=== PATIENT | female | born 1955 | race American Indian/Alaskan Native ===

== ENCOUNTER 2021-11-19 20:05 | Inpatient (IN) | payer MEDICARE ==
[2021-11-19] MEDS ORDERED: VANCOMYCIN 1,250 MG in SODIUM CHLORIDE 0.9% 500 ML 500 ML IV ONE (21:21)
--- NOTE | 2021-11-19 21:39 | Emergency Department Report ---
ED General Adult HPI - General Chief complaint: Hypoglycemia Stated complaint: LOW BLOOD SUGAR Time Seen by Provider: 11/19/21 20:37 Source: EMS Mode of arrival: Stretcher Limitations: No Limitations - History of Present Illness Initial comments: Patient has a history of diabetes, left below the knee amputation who presents emergency department with complaints of low blood sugar. Patient states that she did not eat today and did take her insulin. Patient's blood sugar was in the 20s and then the 30s. Patient's blood sugar here is 94 and she states that she does not take any oral hyper antihyperglycemic agents. Patient states that she took 30 units of the 70/30 insulin at approximately noon. Severity scale (0 -10): 0 - Related Data Home Medications Medication Instructions Recorded Confirmed Last Taken Lenalidomide [Revlimid] 10 mg PO QDAY 11/21/21 11/21/21 Unknown Tamoxifen Citrate 20 mg PO DAILY 11/21/21 11/21/21 Unknown Valacyclovir HCl [Valacyclovir] 500 mg BID 11/21/21 11/21/21 Unknown amLODIPine [Norvasc] 5 mg PO DAILY 11/21/21 11/21/21 Unknown carvediloL [Coreg] 6.25 mg PO BID 11/21/21 11/21/21 Unknown hydrALAZINE [Apresoline TAB] 10 mg PO BID 11/21/21 11/21/21 Unknown Allergies Allergy/AdvReac Type Severity Reaction Status Date / Time sulfamethoxazole Allergy Severe Unknown Verified 11/20/21 16:16 [From Bactrim] trimethoprim [From Bactrim] Allergy Severe Unknown Verified 11/20/21 16:16 cephalexin [From Keflex] Allergy Intermediate Rash Verified 11/20/21 16:20 penicillin G Allergy Intermediate Rash Verified 11/20/21 16:20 SHIN Inhibitors AdvReac Swelling Verified 11/25/21 13:46 ED Review of Systems ROS: Stated complaint: LOW BLOOD SUGAR Other details as noted in HPI Constitutional: denies: chills, fever Eyes: denies: eye pain, eye discharge, vision change ENT: denies: ear pain, throat pain Respiratory: denies: cough, shortness of breath, wheezing Cardiovascular: denies: chest pain, palpitations Endocrine: no symptoms reported Gastrointestinal: denies: abdominal pain, nausea, diarrhea Genitourinary: denies: urgency, dysuria, discharge Musculoskeletal: denies: back pain, joint swelling, arthralgia Skin: denies: rash, lesions Neurological: denies: headache, weakness, paresthesias Psychiatric: denies: anxiety, depression Hematological/Lymphatic: denies: easy bleeding, easy bruising ED Past Medical Hx - Past Medical History Previous Medical History?: Yes Hx Hypertension: Yes Hx Diabetes: Yes (IDDM) Additional medical history: breast cancer, multiple myeloma - Surgical History Past Surgical History?: No - Social History Smoking Status: Unknown if ever smoked - Medications Home Medications: Home Medications Medication Instructions Recorded Confirmed Last Taken Type Lenalidomide [Revlimid] 10 mg PO QDAY 11/21/21 11/21/21 Unknown History Tamoxifen Citrate 20 mg PO DAILY 11/21/21 11/21/21 Unknown History Valacyclovir HCl [Valacyclovir] 500 mg BID 11/21/21 11/21/21 Unknown History amLODIPine [Norvasc] 5 mg PO DAILY 11/21/21 11/21/21 Unknown History carvediloL [Coreg] 6.25 mg PO BID 11/21/21 11/21/21 Unknown History hydrALAZINE [Apresoline TAB] 10 mg PO BID 11/21/21 11/21/21 Unknown History ED Physical Exam - General Limitations: No Limitations General appearance: alert, in no apparent distress - Head Head exam: Present: atraumatic, normocephalic - Eye Eye exam: Present: normal appearance - ENT ENT exam: Present: mucous membranes moist - Neck Neck exam: Present: normal inspection - Respiratory Respiratory exam: Present: normal lung sounds bilaterally. Absent: respiratory distress - Cardiovascular Cardiovascular Exam: Present: regular rate, normal rhythm. Absent: systolic murmur, diastolic murmur, rubs, gallop - GI/Abdominal GI/Abdominal exam: Present: soft, normal bowel sounds - Extremities Exam Extremities exam: Present: normal inspection, other (There is a left below the knee amputation. The right lower extremity has a foot with a 2+ DP pulse. The great toe is black is macerated it is foul-smelling it appears gangrenous) - Back Exam Back exam: Present: normal inspection - Neurological Exam Neurological exam: Present: alert, oriented X3 - Psychiatric Psychiatric exam: Present: normal affect, normal mood - Skin Skin exam: Present: warm, dry, intact, normal color. Absent: rash ED Course Vital Signs 11/19/21 11/20/21 11/20/21 20:26 00:00 01:09 Temperature 97.3 F L Pulse Rate 75 80 Pulse Rate [ 67 Anterior Bilateral Throughout] Respiratory 18 19 Rate Respiratory 22 Rate [Anterior Bilateral Throughout] Blood Pressure 145/98 Blood Pressure 146/49 [Left] O2 Sat by Pulse 100 100 Oximetry 11/20/21 11/20/21 11/20/21 02:10 03:44 05:34 Temperature 98.4 F Pulse Rate 65 75 67 Pulse Rate [ Anterior Bilateral Throughout] Respiratory 17 17 11 L Rate Respiratory Rate [Anterior Bilateral Throughout] Blood Pressure Blood Pressure 139/65 164/73 162/67 [Left] O2 Sat by Pulse 98 95 100 Oximetry - Consultations Consultation #1: 11/19/21 23:[address] Morgan who is on-call for nephrology. He agrees with plan for calcium gluconate, Kayexalate, albuterol. Will see patient. ED Medical Decision Making - Lab Data Result diagrams: 11/24/21 05:23 11/24/21 05:23 - Radiology Data Radiology results: report reviewed, image reviewed - Medical Decision Making Patient is a 66-year-old female presenting to the emergency department with complaints of low blood sugar however she is incidentally noted to have a gangrenous right great toe. Given this I have ordered the sepsis bundle and will give patient IV fluids, broad-spectrum antibiotics and will obtain chest x- ray, x-ray of the foot urinalysis. Lactic acid and blood cultures were also collected and patient likely to be admitted for work-up including possible amputation of the right great toe. Critical care attestation.: If time is entered above; I have spent that time in minutes in the direct care of this critically ill patient, excluding procedure time. ED Disposition Clinical Impression: Osteomyelitis of great toe of right foot, Gangrene of toe of right foot, Diabetes mellitus with foot ulcer and gangrene, Hyperkalemia, Sepsis, Hypoglycemia Disposition: ADMITTED INPATIENT Is pt being admited?: Yes Condition: Fair
[2021-11-19] MEDS ORDERED: VANCOMYCIN PHARMACY TO DOSE IV SCH (22:00)
[2021-11-19 22:01] LABS: Hemoglobin 10.1 gm/dl (10.1-14.3); Mean Corpuscular HGB Conc 34 % (30-34); Mean Corpuscular Volume 106 fl (79-97); Platelet Count 186 K/mm3 (140-440); Red Blood Count 2.84 M/mm3 (3.65-5.03); Red Cell Distribution Width 15.4 % (13.2-15.2)
--- NOTE | 2021-11-19 22:06 | XRay Report ---
RIGHT FOOT 3 VIEW(S) INDICATION / CLINICAL INFORMATION: osteo vs gangrene great toe COMPARISON: None available. FINDINGS: BONES / JOINT(S): There is cortical irregularity to the distal aspect of the distal phalanx of the fi rst digit. There is overlying subcutaneous emphysema. These findings are concerning for osteomyelitis . There is moderate to severe DJD of the first MTP. Patient is status post amputation of the mid fift h metatarsal and fifth ray. SOFT TISSUES: Calcific atherosclerosis. ADDITIONAL FINDINGS: None. Signer Name: Dontae Garcia DO Signed: 11/19/2021 10:02 PM Workstation Name: [id number]
--- NOTE | 2021-11-19 22:07 | XRay Report ---
CHEST 1 VIEW 11/19/2021 9:32 PM INDICATION / CLINICAL INFORMATION: concern for sepsis. COMPARISON: None available. FINDINGS: SUPPORT DEVICES: None. HEART / MEDIASTINUM: No significant abnormality. LUNGS / PLEURA: No significant pulmonary or pleural abnormality. No pneumothorax. ADDITIONAL FINDINGS: No significant additional findings. IMPRESSION: 1. No acute findings. Signer Name: Dontae Garcia DO Signed: 11/19/2021 10:02 PM Workstation Name: [id number]
[2021-11-19] MEDS ORDERED: AZTREONAM/NS 1 GM/50 ML 1 GM/50 ML VIAL IV ONE (22:21)
[2021-11-19 22:24] LABS: Albumin 3.4 g/dL (3.9-5); Calcium 10.4 mg/dL (8.4-10.2)
[2021-11-19] MEDS ORDERED: SODIUM CHLORIDE 0.9% 1000 ML IV SOLN IV ONE (22:36)
[2021-11-19] MEDS ORDERED: SODIUM POLYSTYRENE 15 GM/60 ML ORAL LIQD PO ONE (22:45)
[2021-11-19] MEDS ORDERED: ALBUTEROL 2.5 MG/3 ML NEBU IH ONE (22:45)
[2021-11-19] MEDS ORDERED: MORPHINE 4 MG/1 ML INJ IV ONE (22:45)
[2021-11-19] MEDS ORDERED: VANCOMYCIN 1,250 MG in SODIUM CHLORIDE 0.9% 250ML 250 ML IV ONE (23:05)
[2021-11-19 23:09] LABS: Band Neutrophils # (Manual) 0.1 K/mm3; Basophils % (Manual) 0 % (0.0-1.8); Total Cells Counted 100
[2021-11-19 23:10] LABS: Anisocytosis 1+; Platelet Estimate Consistent w Auto
--- NOTE | 2021-11-19 23:10 | History and Physical Report ---
History of Present Illness Date of examination: 11/19/21 Date of admission: 11/19/2021 Chief complaint: Low Blood Glucose History of present illness: 66-year-old female with known history of diabetes mellitus and left below-knee amputation presenting to the emergency room today for major complaints of low blood glucose. Patient states that she generally eats today but used her insulin. Initial blood glucose was in the 20s to 30s on the field. Patient denies any chest pain or shortness of breath, no nausea vomiting and no abdominal pain. Work-up in the emergency room today lab reveals hyperkalemia of 5.6, lactic acid initially was 4.4. Chest x-ray reveals no acute abnormality. Patient had a gangrenous looking toe on the right foot which was x-rayed reveal ing overlying subcutaneous emphysema with findings concerning for osteomyelitis. Patient has been started on empiric IV antibiotics. Past History Past Medical History: diabetes, hypertension, other (breast cancer, multiple myeloma) Past Surgical History: Other (Left BKA) Social history: no significant social history Family history: no significant family history Medications and Allergies Allergies Allergy/AdvReac Type Severity Reaction Status Date / Time No Known Allergies Allergy Unverified 11/19/21 20:30 Active Meds: Active Medications Aztreonam (Azactam/Ns 1 Gm/50 Ml) 1 gm in 50 mls @ 50 mls/hr IV ONCE ONE; Protocol Stop: 11/19/21 23:20 Vancomycin HCl 1,250 mg/ (Sodium Chloride) 275 mls @ 166.667 mls/hr IV ONCE ONE Stop: 11/20/21 00:43 Calcium Gluconate 2,000 mg/ (Sodium Chloride) 120 mls @ 660 mls/hr IV ONCE ONE Stop: 11/20/21 00:25 Review of Systems Constitutional: no fever, no chills Ears, nose, mouth and throat: no nasal congestion, no sore throat Cardiovascular: no chest pain, no palpitations Respiratory: no cough, no shortness of breath Gastrointestinal: no abdominal pain, no nausea, no vomiting, no diarrhea Genitourinary Female: no pelvic pain, no flank pain, no dysuria, no hematuria Musculoskeletal: no neck pain, no low back pain Integumentary: no rash, no pruritis Neurological: no headaches, no confusion Psychiatric: no anxiety, no depression Endocrine: no polyphagia, no polydipsia, no polyuria, no nocturia Exam - Constitutional Vitals: Temp Pulse Resp BP Pulse Ox 97.3 F L 75 18 145/98 100 11/19/21 20:26 11/19/21 20:26 11/19/21 20:26 11/19/21 20:26 11/19/21 20:26 General appearance: Present: no acute distress, well-nourished - EENT Eyes: Present: PERRL, EOM intact. Absent: scleral icterus ENT: clear oral mucosa, dentition normal - Neck Neck: Present: supple, normal ROM - Respiratory Respiratory effort: normal Respiratory: bilateral: CTA - Cardiovascular Rhythm: regular Heart Sounds: Present: S1 & S2. Absent: gallop, systolic murmur, diastolic murmur, rub, click - Extremities Extremities: No edema, normal temperature, normal color, Full ROM, abnormal (Denies any left below-knee amputation.) Extremity abnormal: ulceration (Right great toe appears gangrenous., Skin appears macerated and black), other (Falls on right lower extremity to rule out. ) - Abdominal General gastrointestinal: Present: soft, non-tender, non-distended, normal bowel sounds. Absent: mass - Integumentary Integumentary: Present: clear, warm, dry, normal turgor. Absent: rash - Musculoskeletal Musculoskeletal: strength equal bilaterally - Psychiatric Psychiatric: appropriate mood/affect, intact judgment & insight, memory intact, cooperative - Neurologic Neurologic: CNII-XII intact, no focal deficits, moves all extremities Results - Labs CBC & Chem 7: 11/19/21 21:44 11/19/21 21:44 Labs: Abnormal lab results 11/19/21 11/19/21 11/19/21 Range/Units 21:44 21:44 21:44 WBC 2.5 L (4.5-11.0) K/mm3 RBC 2.84 L (3.65-5.03) M/mm3 Hct 30.0 L (30.3-42.9) % MCV 106 H (79-97) fl MCH 36 H (28-32) pg RDW 15.4 H (13.2-15.2) % Potassium 5.6 H (3.6-5.0) mmol/L BUN 25 H (7-17) mg/dL Creatinine 1.8 H (0.6-1.2) mg/dL Lactic Acid 4.40 H* (0.7-2.0) mmol/L Calcium 10.4 H (8.4-10.2) mg/dL Albumin 3.4 L (3.9-5) g/dL Assessment and Plan Assessment: 1. Hypoglycemia. 2. Right great to gangrene versus osteomyelitis. 3. Hyperkalemia 4. Sepsis 5. DORCAS Plan: 1. Patient placed on empiric IV antibiotics. 2. We will also monitor Accu-Cheks closely. 3. We will treat patient's hyperkalemia. 4. We will consult infectious disease and podiatry for further evaluation and recommendations. 5. We will resume routine home medications once reconciled 6. Consult placed to nephrology for evaluation and recommendation. DVT prophylaxis: Patient placed on subcutaneous heparin CODE STATUS: Full code
[2021-11-20] MEDS ORDERED: CALCIUM GLUCONATE 2,000 MG in SODIUM CHLORIDE 0.9% 100 ML IV ONE (00:15)
[2021-11-20 00:42] LABS: Bacteria,Urine 3+ /HPF (Negative); Mucus,Urine FEW /HPF
[2021-11-20] MEDS ORDERED: DEXTROSE 50% IN WATER (25GM) 50 ML SYRINGE IV PRN (00:45)
[2021-11-20] MEDS ORDERED: ONDANSETRON 4 MG/2 ML INJ IV PRN (00:45)
[2021-11-20] MEDS ORDERED: MAGNESIUM HYDROXIDE (MOM) ORAL LIQD UDC PO PRN (00:45)
[2021-11-20 00:47] LABS: Bilirubin,Urine Negative (Negative); Color,Urine Yellow (Yellow)
[2021-11-20 00:48] LABS: Blood,Urine Negative (Negative)
[2021-11-20] MEDS ORDERED: AZTREONAM/NS 1 GM/50 ML 1 GM/50 ML VIAL IV SCH (06:00)
[2021-11-20] MEDS: MORPHINE 2 MG/1 ML INJ IV PRN ×2 (09:45→22:19)
--- NOTE | 2021-11-20 11:32 | Event Note ---
Date: 11/20/21 ID consulted for toe gangrene. Tried to see the patient twice but has been off the floor. Patient reportedly admitted due to hypoglycemia, incidentally found to have gangrenous appearing toe. No sepsis. Recommendations: -Empiric ceftriaxone, vancomycin, orders placed -Vascular surgery evaluation recommended Analia Salcedo MD, FACP, NED [facility] O: [phone] F: [phone] C: [phone]
[2021-11-20] MEDS: SODIUM CHLORIDE 0.9% 1000 ML 1,000 ML IV SCH ×2 (13:42→22:27)
[2021-11-20] MEDS: HEPARIN 5,000 UNIT/1 ML VIAL SUB-Q SCH ×2 (13:45→22:25)
[2021-11-20] MEDS: cefTRIAXone/NS 1 GM/50 ML 1 GM/50 ML BAG IV SCH (13:45)
--- NOTE | 2021-11-20 17:06 | Magnetic Resonance Report ---
MRI RIGHT FOOT WITHOUT CONTRAST INDICATION / CLINICAL INFORMATION: OSTEOMYELITIS RT. GREAT TOE Patient motion, best possible exam.. TECHNIQUE: Multiplanar, multisequence MR images were obtained. COMPARISON: None available. FINDINGS: BONES: Bony destruction with abnormal hypointense T1 and hyperintense T2 signal first toe proximal an d distal phalanx with ulcer along the distal phalanx with the cutaneous soft tissue gas. Previous amp utation of fifth toe mid metatarsal shaft. No fracture. No osseous lesion. JOINTS: Advanced degenerative arthrosis first MTP joint. No significant joint effusion or synovitis. SUBCUTANEOUS SOFT TISSUES: Subcutaneous edema characteristic for cellulitis MUSCLES: No significant abnormality. FLEXOR TENDONS: No significant abnormality. EXTENSOR TENDONS: No significant abnormality. LIGAMENTS: No significant abnormality. ADDITIONAL FINDINGS: None. IMPRESSION: 1. Acute osteomyelitis involving first toe proximal and distal phalanges with associated ulcer and rick bcutaneous gas and cellulitis Signer Name: Adalid Hadley MD Signed: 11/20/2021 5:02 PM Workstation Name: [id number]
[2021-11-20] MEDS: INSULIN LISPRO 100 UNIT/ML SUB-Q SCH ×2 (17:54→22:33)
[2021-11-20] MEDS: ACETAMINOPHEN 325 MG TAB PO PRN (18:47)
--- NOTE | 2021-11-20 19:08 | Consultation ---
History of Present Illness - Reason for Consult Consult date: 11/20/21 acute renal failure, chronic renal failure, hyperkalemia - History of Present Illness This is a 66-year-old -[place] woman with history of diabetes, CKD and left BKA who presented with concerns for hypoglycemia. Hypoglycemia was confirmed in the ER and she was subsequently admitted for further workup. Nephrology was consulted for acute kidney injury. Patient states that she has underlying CKD but is unaware of her baseline creatinine and staging. She states that she follows a Dr. Nichols. She denies any recent diarrhea, hematuria, dysuria and NSAID use. Past History Past Medical History: diabetes, hypertension, other (breast cancer, multiple myeloma) Past Surgical History: Other (Left BKA) Social history: no significant social history Family history: no significant family history Medications and Allergies Allergies Allergy/AdvReac Type Severity Reaction Status Date / Time sulfamethoxazole Allergy Severe Unknown Verified 11/20/21 16:16 [From Bactrim] trimethoprim [From Bactrim] Allergy Severe Unknown Verified 11/20/21 16:16 cephalexin [From Keflex] Allergy Intermediate Rash Verified 11/20/21 16:20 penicillin G Allergy Intermediate Rash Verified 11/20/21 16:20 Active Meds: Active Medications Acetaminophen (Acetaminophen 325 Mg Tab) 650 mg PO Q4H PRN PRN Reason: Pain MILD(1-3)/Fever >100.5/BOLAND Last Admin: 11/20/21 18:47 Dose: 650 mg Dextrose (Dextrose 50% In Water (25gm) 50 Ml Syringe) 0 ml IV Q30MIN PRN; Protocol PRN Reason: Hypoglycemia Heparin Sodium (Porcine) (Heparin 5,000 Unit/1 Ml Vial) 5,000 unit SUB-Q Q8HR [facility]IMI Last Admin: 11/20/21 13:45 Dose: 5,000 unit Sodium Chloride (Nacl 0.9% 1000 Ml) 1,000 mls @ 125 mls/hr IV DIRECT MIMI Last Admin: 11/20/21 13:42 Dose: 125 mls/hr Vancomycin HCl (Vancomycin/Ns 1 Gm/250 Ml) 1 gm in 250 mls @ 250 mls/hr IV Q24H [facility] Ceftriaxone Sodium (Rocephin/Ns 1 Gm/50 Ml) 1 gm in 50 mls @ 100 mls/hr IV Q24HR [facility]I; Protocol Last Admin: 11/20/21 13:45 Dose: 100 mls/hr Insulin Human Lispro (Insulin Lispro 100 Unit/Ml) 0 unit SUB-Q ACHS [facility]; Protocol Last Admin: 11/20/21 17:54 Dose: Not Given Magnesium Hydroxide (Magnesium Hydroxide (Mom) Oral Liqd Udc) 30 ml PO Q4H PRN PRN Reason: Constipation Morphine Sulfate (Morphine 2 Mg/1 Ml Inj) 2 mg IV Q4H PRN PRN Reason: Pain, Moderate (4-6) Last Admin: 11/20/21 09:45 Dose: 2 mg Morphine Sulfate (Morphine 4 Mg/1 Ml Inj) 4 mg IV Q4H PRN PRN Reason: Pain , Severe (7-10) Ondansetron HCl (Ondansetron 4 Mg/2 Ml Inj) 4 mg IV Q8H PRN PRN Reason: Nausea And Vomiting Sodium Chloride (Sodium Chloride 0.9% 10 Ml Flush Syringe) 10 ml IV BID [facility] Last Admin: 11/20/21 13:46 Dose: 10 ml Sodium Chloride (Sodium Chloride 0.9% 10 Ml Flush Syringe) 10 ml IV PRN PRN PRN Reason: LINE FLUSH Review of Systems All systems: negative Constitutional: malaise, lethargy Exam - Vital Signs Vital signs: Vital Signs Temp Pulse Resp BP Pulse Ox 97.3 F L 75 18 145/98 100 11/19/21 20:26 11/19/21 20:26 11/19/21 20:26 11/19/21 20:26 11/19/21 20:26 - Physical Exam Narrative exam: General: No acute distress HEENT: Oral mucosa moist Neck: Supple, no JVD Chest: Clear to auscultation bilaterally Heart: RRR, S1 and S2, no pericardial rub Abdomen: Soft, nontender, no renal bruit Extremity: No peripheral cyanosis, left BKA Neurological: Alert, awake, no asterixis Dermatology: No skin rash Psych: No agitation Musculoskeletal: No joint effusion Results - Lab Results 11/19/21 21:44 11/19/21 21:44 Most recent lab results Calcium 10.4 mg/dL (8.4-10.2) H 11/19/21 21:44 Assessment and Plan Acute kidney injury versus CKD Hyperkalemia Lactic acidosis Diabetes Mellitus Hypercalcemia Follow-up renal ultrasound Urinalysis reviewed, check UPCR Check ionized calcium, vit D and PTH Discussed low potassium diet Renally dose medications Avoid nephrotoxins Renal diet
[2021-11-21 00:15] LABS: Calcium 8.1 mg/dL (8.4-10.2)
[2021-11-21] MEDS: VANCOMYCIN/NS 1 GM/250 ML 1 GM/250 ML BAG IV SCH (00:29)
[2021-11-21] MEDS: HEPARIN 5,000 UNIT/1 ML VIAL SUB-Q SCH ×4 (03:13→21:30)
[2021-11-21] MEDS: MORPHINE 4 MG/1 ML INJ IV PRN ×2 (04:48→12:33)
[2021-11-21 06:04] LABS: Hematocrit 23.6 % (30.3-42.9); Mean Corpuscular HGB Conc 34 % (30-34); Mean Corpuscular Volume 104 fl (79-97); Platelet Count 135 K/mm3 (140-440); Red Blood Count 2.28 M/mm3 (3.65-5.03); Red Cell Distribution Width 15.3 % (13.2-15.2)
[2021-11-21 06:23] LABS: Calcium 7.9 mg/dL (8.4-10.2)
[2021-11-21] MEDS: SODIUM CHLORIDE 0.9% 1000 ML 1,000 ML IV SCH (06:51)
[2021-11-21] MEDS: INSULIN LISPRO 100 UNIT/ML SUB-Q SCH ×4 (08:36→21:35)
[2021-11-21 08:54] LABS: Total Cells Counted 100
[2021-11-21 08:55] LABS: Basophils % (Manual) 0 % (0.0-1.8)
[2021-11-21 08:56] LABS: Anisocytosis 1+; Platelet Estimate Consistent w Auto
--- NOTE | 2021-11-21 11:12 | Progress Note ---
Assessment and Plan 66-year-old female with known history of diabetes mellitus and left below-knee amputation presenting to the emergency room today for major complaints of low blood glucose 20s to 30s on the field. Work-up in the emergency room: lab reveals hyperkalemia of 5.6, lactic acid initially was 4.4. Chest x-ray reveals no acute abnormality. Patient had a gangrenous looking toe on the right foot which was x-rayed revealing overlying subcutaneous emphysema with findings concerning for osteomyelitis. Patient has been started on empiric IV antibiotics. Assessment: -- Hypoglycemia -- Right great to gangrene with osteomyelitis. -- Hyperkalemia, resolved -- Sepsis due to osteo -- DORCAS, likely vasomotor nephropathy -- s/p left AKA -- DM type 2 Plan: -- Patient placed on empiric IV antibiotics. -- We will also monitor Accu-Cheks closely. -- Monitor BMP, SSI -- consulted vascular and ID --resumed routine home medications once reconciled -- Consult placed to nephrology for evaluation and recommendation. -- DVT prophylaxis: Patient placed on subcutaneous heparin 11/20: cont empiric abx, ID consulted, follow cx, consult vascular, follow BMP Subjective Date of service: 11/20/21 Interval history: Patient seen and examined. Medical records and medication list reviewed. No acute event overnight noted by the RN. Patient denies any chest pain or difficulty breathing. Discussed plan of care at bedside with patient. Objective - Exam Narrative Exam: GENERAL: well-developed and well-nourished AAF lying on bed appeared to be in no discomfort. HEENT: Normocephalic. Atraumatic. No conjunctival congestion or icterus. Patient has moist mucous membranes. NECK: Supple. Trachea midline. CHEST/LUNGS: Clear to auscultated bilaterally, breathing nonlabored. No wheezes crackles or rhonchi. HEART/CARDIOVASCULAR: Regular in rate and rhythm. S1 and S2 positive. ABDOMEN: Abdomen is soft, nontender. Patient has normal bowel sounds. SKIN: There is no rash. Warm and dry. NEURO: No focal motor deficit. Follows command. MUSCULOSKELETAL: No joint effusion or tenderness. Extremities: ( left below-knee amputation.) ulceration (Right great toe appears gangrenous., Skin appears macerated and black), PSYCH: Cooperative. - Constitutional Vitals: Vital Signs - 12hr 11/21/21 04:49 Temperature 99.4 F Pulse Rate 75 Respiratory 17 Rate Blood Pressure 186/83 [Left] O2 Sat by Pulse 98 Oximetry - Labs CBC & Chem 7: 11/23/21 00:24 11/23/21 04:27 Labs: Abnormal lab results 11/20/21 11/20/21 11/20/21 Range/Units 13:39 15:57 20:58 WBC (4.5-11.0) K/mm3 RBC (3.65-5.03) M/mm3 Hgb (10.1-14.3) gm/dl Hct (30.3-42.9) % MCV (79-97) fl MCH (28-32) pg RDW (13.2-15.2) % Plt Count (140-440) K/mm3 Seg Neuts % (Manual) (40.0-70.0) % Seg Neutrophils # Man (1.8-7.7) K/mm3 Lymphocytes # (Manual) (1.2-5.4) K/mm3 Sodium (137-145) mmol/L Glucose (65-100) mg/dL POC Glucose 145 H 253 H 238 H (70-105) mg/dL Calcium (8.4-10.2) mg/dL 11/20/21 11/21/21 11/21/21 Range/Units 23:18 05:09 05:09 WBC 2.0 L (4.5-11.0) K/mm3 RBC 2.28 L (3.65-5.03) M/mm3 Hgb 8.0 L (10.1-14.3) gm/dl Hct 23.6 L D (30.3-42.9) % MCV 104 H (79-97) fl MCH 35 H (28-32) pg RDW 15.3 H (13.2-15.2) % Plt Count 135 L (140-440) K/mm3 Seg Neuts % (Manual) 77.0 H (40.0-70.0) % Seg Neutrophils # Man 1.5 L (1.8-7.7) K/mm3 Lymphocytes # (Manual) 0.3 L (1.2-5.4) K/mm3 Sodium 135 L (137-145) mmol/L Glucose 215 H 155 H (65-100) mg/dL POC Glucose (70-105) mg/dL Calcium 8.1 L D 7.9 L (8.4-10.2) mg/dL 11/21/21 11/21/21 Range/Units 07:23 11:07 WBC (4.5-11.0) K/mm3 RBC (3.65-5.03) M/mm3 Hgb (10.1-14.3) gm/dl Hct (30.3-42.9) % MCV (79-97) fl MCH (28-32) pg RDW (13.2-15.2) % Plt Count (140-440) K/mm3 Seg Neuts % (Manual) (40.0-70.0) % Seg Neutrophils # Man (1.8-7.7) K/mm3 Lymphocytes # (Manual) (1.2-5.4) K/mm3 Sodium (137-145) mmol/L Glucose (65-100) mg/dL POC Glucose 148 H 253 H (70-105) mg/dL Calcium (8.4-10.2) mg/dL
[2021-11-21] MEDS: cefTRIAXone/NS 1 GM/50 ML 1 GM/50 ML BAG IV SCH (12:33)
--- NOTE | 2021-11-21 12:36 | Consultation ---
History of Present Illness - Reason for Consult Consult date: 11/21/21 right 1st toe gangrene Requesting physician: LEESA AGUILAR - History of Present Illness 66-year-old female with known history of diabetes mellitus and left below-knee amputation presenting to the emergency room today for major complaints of low blood glucose. Patient states that she generally eats today but used her insulin. Initial blood glucose was in the 20s to 30s on the field. Patient denies any chest pain or shortness of breath, no nausea vomiting and no abdominal pain. Work-up in the emergency room today lab reveals hyperkalemia of 5.6, lactic acid initially was 4.4. Chest x-ray reveals no acute abnormality. Patient had a gangrenous looking toe on the right foot which was x-rayed revealing overlying subcutaneous emphysema with findings concerning for osteomyelitis. Patient has been started on empiric IV antibiotics. Vascular consulted for right first digit gangrene. Reviewed x-ray demonstrating early changes of osteomyelitis. Patient has palpable right dorsalis pedis pulse and nonpalpable right posterior tibial pulse. The DP pulses bounding. Discussed with patient that I will obtain an arterial ultrasound and SONAL study for further evaluation. May need angiogram if abnormal. Past History Past Medical History: diabetes, hypertension, other (breast cancer, multiple myeloma) Past Surgical History: Other (Left BKA) Social history: no significant social history Family history: no significant family history Medications and Allergies Allergies Allergy/AdvReac Type Severity Reaction Status Date / Time sulfamethoxazole Allergy Severe Unknown Verified 11/20/21 16:16 [From Bactrim] trimethoprim [From Bactrim] Allergy Severe Unknown Verified 11/20/21 16:16 cephalexin [From Keflex] Allergy Intermediate Rash Verified 11/20/21 16:20 penicillin G Allergy Intermediate Rash Verified 11/20/21 16:20 Active Meds: Active Medications Acetaminophen (Acetaminophen 325 Mg Tab) 650 mg PO Q4H PRN PRN Reason: Pain MILD(1-3)/Fever >100.5/BOLAND Last Admin: 11/20/21 18:47 Dose: 650 mg Dextrose (Dextrose 50% In Water (25gm) 50 Ml Syringe) 0 ml IV Q30MIN PRN; Protocol PRN Reason: Hypoglycemia Heparin Sodium (Porcine) (Heparin 5,000 Unit/1 Ml Vial) 5,000 unit SUB-Q Q8HR MIMI Last Admin: 11/21/21 06:52 Dose: 5,000 unit Sodium Chloride (Nacl 0.9% 1000 Ml) 1,000 mls @ 125 mls/hr IV DIRECT [facility] Last Admin: 11/21/21 06:51 Dose: 125 mls/hr Vancomycin HCl (Vancomycin/Ns 1 Gm/250 Ml) 1 gm in 250 mls @ 250 mls/hr IV Q24H [facility] Last Admin: 11/21/21 00:29 Dose: 250 mls/hr Ceftriaxone Sodium (Rocephin/Ns 1 Gm/50 Ml) 1 gm in 50 mls @ 100 mls/hr IV Q24HR [facility]; Protocol Last Admin: 11/21/21 12:33 Dose: 100 mls/hr Insulin Human Lispro (Insulin Lispro 100 Unit/Ml) 0 unit SUB-Q ACHS [facility]; Protocol Last Admin: 11/20/21 22:33 Dose: Not Given Magnesium Hydroxide (Magnesium Hydroxide (Mom) Oral Liqd Udc) 30 ml PO Q4H PRN PRN Reason: Constipation Morphine Sulfate (Morphine 2 Mg/1 Ml Inj) 2 mg IV Q4H PRN PRN Reason: Pain, Moderate (4-6) Last Admin: 11/20/21 22:19 Dose: 2 mg Morphine Sulfate (Morphine 4 Mg/1 Ml Inj) 4 mg IV Q4H PRN PRN Reason: Pain , Severe (7-10) Last Admin: 11/21/21 12:33 Dose: 4 mg Ondansetron HCl (Ondansetron 4 Mg/2 Ml Inj) 4 mg IV Q8H PRN PRN Reason: Nausea And Vomiting Sodium Chloride (Sodium Chloride 0.9% 10 Ml Flush Syringe) 10 ml IV BID [facility] Last Admin: 11/21/21 12:33 Dose: 10 ml Sodium Chloride (Sodium Chloride 0.9% 10 Ml Flush Syringe) 10 ml IV PRN PRN PRN Reason: LINE FLUSH Review of Systems All systems: negative (see HPI) Exam - Constitutional Vitals: Temp Pulse Resp BP Pulse Ox 99.4 F 75 17 186/83 98 11/21/21 04:49 11/21/21 04:49 11/21/21 04:49 11/21/21 04:49 11/21/21 04:49 General appearance: Present: no acute distress, other (Depressed) - EENT Eyes: Present: EOM intact ENT: hearing intact - Neck Neck: Present: supple - Respiratory Respiratory effort: normal - Extremities Extremities: pulses intact (Palpable right DP, nonpalpable right PT), normal temperature, normal color, abnormal (Left BKA, right first digit gangrene) - Abdominal General gastrointestinal: Present: soft, non-tender - Psychiatric Psychiatric: cooperative, depressed Results - Labs CBC & Chem 7: 11/21/21 05:09 11/21/21 05:09 Labs: Abnormal lab results 11/20/21 11/20/21 11/20/21 Range/Units 13:39 15:57 20:58 WBC (4.5-11.0) K/mm3 RBC (3.65-5.03) M/mm3 Hgb (10.1-14.3) gm/dl Hct (30.3-42.9) % MCV (79-97) fl MCH (28-32) pg RDW (13.2-15.2) % Plt Count (140-440) K/mm3 Seg Neuts % (Manual) (40.0-70.0) % Seg Neutrophils # Man (1.8-7.7) K/mm3 Lymphocytes # (Manual) (1.2-5.4) K/mm3 Sodium (137-145) mmol/L Glucose (65-100) mg/dL POC Glucose 145 H 253 H 238 H (70-105) mg/dL Calcium (8.4-10.2) mg/dL 11/20/21 11/21/21 11/21/21 Range/Units 23:18 05:09 05:09 WBC 2.0 L (4.5-11.0) K/mm3 RBC 2.28 L (3.65-5.03) M/mm3 Hgb 8.0 L (10.1-14.3) gm/dl Hct 23.6 L D (30.3-42.9) % MCV 104 H (79-97) fl MCH 35 H (28-32) pg RDW 15.3 H (13.2-15.2) % Plt Count 135 L (140-440) K/mm3 Seg Neuts % (Manual) 77.0 H (40.0-70.0) % Seg Neutrophils # Man 1.5 L (1.8-7.7) K/mm3 Lymphocytes # (Manual) 0.3 L (1.2-5.4) K/mm3 Sodium 135 L (137-145) mmol/L Glucose 215 H 155 H (65-100) mg/dL POC Glucose (70-105) mg/dL Calcium 8.1 L D 7.9 L (8.4-10.2) mg/dL 11/21/21 11/21/21 Range/Units 07:23 11:07 WBC (4.5-11.0) K/mm3 RBC (3.65-5.03) M/mm3 Hgb (10.1-14.3) gm/dl Hct (30.3-42.9) % MCV (79-97) fl MCH (28-32) pg RDW (13.2-15.2) % Plt Count (140-440) K/mm3 Seg Neuts % (Manual) (40.0-70.0) % Seg Neutrophils # Man (1.8-7.7) K/mm3 Lymphocytes # (Manual) (1.2-5.4) K/mm3 Sodium (137-145) mmol/L Glucose (65-100) mg/dL POC Glucose 148 H 253 H (70-105) mg/dL Calcium (8.4-10.2) mg/dL Assessment and Plan 66-year-old female with right first digit gangrene status post right first digit ingrown toenail removal. X-ray demonstrates early changes of osteomyelitis. Has bounding right DP, but nonpalpable right PT. Arterial ultrasound ordered and SONAL ordered. May need angiogram if abnormal. Awaiting arterial Doppler.
--- NOTE | 2021-11-21 16:36 | Progress Note ---
Assessment and Plan 66-year-old female with known history of diabetes mellitus and left below-knee amputation presenting to the emergency room today for major complaints of low blood glucose 20s to 30s on the field. Work-up in the emergency room: lab reveals hyperkalemia of 5.6, lactic acid initially was 4.4. Chest x-ray reveals no acute abnormality. Patient had a gangrenous looking toe on the right foot which was x-rayed revealing overlying subcutaneous emphysema with findings concerning for osteomyelitis. Patient has been started on empiric IV antibiotics. Assessment: -- Hypoglycemia -- Right great to gangrene with osteomyelitis. -- Hyperkalemia, resolved -- Sepsis due to osteo -- DORCAS, likely vasomotor nephropathy -- s/p left AKA Plan: -- Patient placed on empiric IV antibiotics. -- We will also monitor Accu-Cheks closely. -- Monitor BMP -- consulted vascular and ID --resumed routine home medications once reconciled -- Consult placed to nephrology for evaluation and recommendation. -- DVT prophylaxis: Patient placed on subcutaneous heparin 11/20: cont empiric abx, ID consulted, follow cx, consult vascular, follow BMP 11/21. ; Consulted vascular for recommendation, plan for arteriogram on Tuesday, continue empiric antibiotics, ID following Subjective Date of service: 11/21/21 Interval history: Patient seen and examined. Medical records and medication list reviewed. No acute event overnight noted by the RN. Patient denies any chest pain or difficulty breathing. Discussed plan of care at bedside with patient. Objective - Exam Narrative Exam: GENERAL: well-developed and well-nourished AAF lying on bed appeared to be in no discomfort. HEENT: Normocephalic. Atraumatic. No conjunctival congestion or icterus. Patient has moist mucous membranes. NECK: Supple. Trachea midline. CHEST/LUNGS: Clear to auscultated bilaterally, breathing nonlabored. No wheezes crackles or rhonchi. HEART/CARDIOVASCULAR: Regular in rate and rhythm. S1 and S2 positive. ABDOMEN: Abdomen is soft, nontender. Patient has normal bowel sounds. SKIN: There is no rash. Warm and dry. NEURO: No focal motor deficit. Follows command. MUSCULOSKELETAL: No joint effusion or tenderness. Extremities: ( left below-knee amputation.) ulceration (Right great toe appears gangrenous., Skin appears macerated and black), PSYCH: Cooperative. - Constitutional Vitals: Vital Signs - 12hr 11/21/21 11/21/21 11/21/21 04:49 10:00 11:37 Temperature 99.4 F 98.9 F Pulse Rate 75 66 Respiratory 17 16 Rate Blood Pressure 171/67 Blood Pressure 186/83 [Left] O2 Sat by Pulse 98 96 99 Oximetry - Labs CBC & Chem 7: 11/23/21 00:24 11/23/21 04:27 Labs: Abnormal lab results 11/20/21 11/20/21 11/21/21 Range/Units 20:58 23:18 05:09 WBC 2.0 L (4.5-11.0) K/mm3 RBC 2.28 L (3.65-5.03) M/mm3 Hgb 8.0 L (10.1-14.3) gm/dl Hct 23.6 L D (30.3-42.9) % MCV 104 H (79-97) fl MCH 35 H (28-32) pg RDW 15.3 H (13.2-15.2) % Plt Count 135 L (140-440) K/mm3 Seg Neuts % (Manual) 77.0 H (40.0-70.0) % Seg Neutrophils # Man 1.5 L (1.8-7.7) K/mm3 Lymphocytes # (Manual) 0.3 L (1.2-5.4) K/mm3 Sodium 135 L (137-145) mmol/L Glucose 215 H (65-100) mg/dL POC Glucose 238 H (70-105) mg/dL Calcium 8.1 L D (8.4-10.2) mg/dL 11/21/21 11/21/21 11/21/21 Range/Units 05:09 07:23 11:07 WBC (4.5-11.0) K/mm3 RBC (3.65-5.03) M/mm3 Hgb (10.1-14.3) gm/dl Hct (30.3-42.9) % MCV (79-97) fl MCH (28-32) pg RDW (13.2-15.2) % Plt Count (140-440) K/mm3 Seg Neuts % (Manual) (40.0-70.0) % Seg Neutrophils # Man (1.8-7.7) K/mm3 Lymphocytes # (Manual) (1.2-5.4) K/mm3 Sodium (137-145) mmol/L Glucose 155 H (65-100) mg/dL POC Glucose 148 H 253 H (70-105) mg/dL Calcium 7.9 L (8.4-10.2) mg/dL 11/21/21 Range/Units 15:35 WBC (4.5-11.0) K/mm3 RBC (3.65-5.03) M/mm3 Hgb (10.1-14.3) gm/dl Hct (30.3-42.9) % MCV (79-97) fl MCH (28-32) pg RDW (13.2-15.2) % Plt Count (140-440) K/mm3 Seg Neuts % (Manual) (40.0-70.0) % Seg Neutrophils # Man (1.8-7.7) K/mm3 Lymphocytes # (Manual) (1.2-5.4) K/mm3 Sodium (137-145) mmol/L Glucose (65-100) mg/dL POC Glucose 130 H (70-105) mg/dL Calcium (8.4-10.2) mg/dL
--- NOTE | 2021-11-21 17:25 | Progress Note ---
Assessment and Plan Acute kidney injury versus CKD, cr 1.8-->1.2 Hyperkalemia Lactic acidosis Diabetes Mellitus Hypercalcemia Follow-up renal ultrasound report - pending Urinalysis reviewed, UPCR pending F/u ionized calcium, vit D and PTH Emphasized on continuation of low potassium diet Renally dose medications Avoid nephrotoxins Renal diet Subjective Date of service: 11/21/21 Principal diagnosis: Toe gangrene Interval history: Resting in bed. Notes improved urine output. Objective - Exam Narrative Exam: General: No acute distress HEENT: Oral mucosa moist Neck: Supple, no JVD Chest: Clear to auscultation bilaterally Heart: RRR, S1 and S2, no pericardial rub Abdomen: Soft, nontender, no renal bruit Extremity: No peripheral cyanosis, left BKA. Right toe gangrene Neurological: Alert, awake, no asterixis Dermatology: No skin rash Psych: No agitation Musculoskeletal: No joint effusion - Vital Signs Vital signs: Vital Signs - 12hr 11/21/21 11/21/21 10:00 11:37 Temperature 98.9 F Pulse Rate 66 Respiratory 16 Rate Blood Pressure 171/67 O2 Sat by Pulse 96 99 Oximetry - Lab 11/21/21 05:09 11/21/21 05:09 Most recent lab results Calcium 7.9 mg/dL (8.4-10.2) L 11/21/21 05:09 Medications & Allergies - Medications Allergies/Adverse Reactions: Allergies sulfamethoxazole [From Bactrim] Allergy (Severe, Verified 11/20/21 16:16) Unknown renal failure trimethoprim [From Bactrim] Allergy (Severe, Verified 11/20/21 16:16) Unknown renal failure cephalexin [From Keflex] Allergy (Intermediate, Verified 11/20/21 16:20) Rash penicillin G Allergy (Intermediate, Verified 11/20/21 16:20) Rash Home Medications: Home Medications Medication Instructions Recorded Confirmed Last Taken Type Lenalidomide [Revlimid] 10 mg PO QDAY 11/21/21 11/21/21 Unknown History Tamoxifen Citrate 20 mg PO DAILY 11/21/21 11/21/21 Unknown History Valacyclovir HCl [Valacyclovir] 500 mg BID 11/21/21 11/21/21 Unknown History amLODIPine [Norvasc] 5 mg PO DAILY 11/21/21 11/21/21 Unknown History carvediloL [Coreg] 6.25 mg PO BID 11/21/21 11/21/21 Unknown History hydrALAZINE [Apresoline TAB] 10 mg PO BID 11/21/21 11/21/21 Unknown History Active Medications: Generic Name Dose Route Start Last Admin Trade Name Freq PRN Reason Stop Dose Admin Acetaminophen 650 mg 11/20/21 00:45 11/20/21 18:47 Acetaminophen 325 Mg Tab PO 650 mg Q4H PRN Administration Pain MILD(1-3)/Fever >100.5/BOLAND Amlodipine Besylate 5 mg 11/22/21 10:00 Amlodipine 5 Mg Tab PO DAILY MIMI Carvedilol 6.25 mg 11/21/21 22:00 Carvedilol 6.25 Mg Tab PO BID MIMI Dextrose 0 ml 11/20/21 00:45 Dextrose 50% In Water (25gm) 50 Ml Syringe IV Q30MIN PRN Hypoglycemia Protocol Heparin Sodium (Porcine) 5,000 unit 11/20/21 06:00 11/21/21 06:52 Heparin 5,000 Unit/1 Ml Vial SUB-Q 5,000 unit Q8HR MIMI Administration Hydralazine HCl 25 mg 11/21/21 20:00 Hydralazine 10 Mg Tab PO TID MIMI Sodium Chloride 1,000 mls @ 125 mls/hr 11/20/21 00:45 11/21/21 06:51 Nacl 0.9% 1000 Ml IV 125 mls/hr DIRECT [facility]I Administration Vancomycin HCl 1 gm in 250 mls @ 250 mls/hr 11/21/21 00:00 11/21/21 00:29 Vancomycin/Ns 1 Gm/250 Ml IV 250 mls/hr Q24H [facility] Administration Ceftriaxone Sodium 1 gm in 50 mls @ 100 mls/hr 11/20/21 12:00 11/21/21 12:33 Rocephin/Ns 1 Gm/50 Ml IV 100 mls/hr Q24HR [facility] Administration Protocol Insulin Human Lispro 0 unit 11/20/21 18:00 11/21/21 12:38 Insulin Lispro 100 Unit/Ml SUB-Q 4 unit ACHS [facility] Administration Protocol Magnesium Hydroxide 30 ml 11/20/21 00:45 Magnesium Hydroxide (Mom) Oral Liqd Udc PO Q4H PRN Constipation Morphine Sulfate 2 mg 11/20/21 00:45 07/08/22 22:19 Morphine 2 Mg/1 Ml Inj IV 2 mg Q4H PRN Administration Pain, Moderate (4-6) Morphine Sulfate 4 mg 11/20/21 00:45 11/21/21 12:33 Morphine 4 Mg/1 Ml Inj IV 4 mg Q4H PRN Administration Pain , Severe (7-10) Ondansetron HCl 4 mg 11/20/21 00:45 Ondansetron 4 Mg/2 Ml Inj IV Q8H PRN Nausea And Vomiting Sodium Chloride 10 ml 11/20/21 10:00 11/21/21 12:33 Sodium Chloride 0.9% 10 Ml Flush Syringe IV 10 ml BID MIMI Administration Sodium Chloride 10 ml 11/20/21 00:45 Sodium Chloride 0.9% 10 Ml Flush Syringe IV PRN PRN LINE FLUSH
[2021-11-21] MEDS ORDERED: hydrALAZINE 10 MG TAB PO SCH (20:00)
[2021-11-21] MEDS: carvediloL 6.25 MG TAB PO SCH (21:30)
[2021-11-21] MEDS: MORPHINE 2 MG/1 ML INJ IV PRN (21:39)
[2021-11-22] MEDS: VANCOMYCIN/NS 1 GM/250 ML 1 GM/250 ML BAG IV SCH (00:49)
[2021-11-22] MEDS: MORPHINE 2 MG/1 ML INJ IV PRN (05:43)
[2021-11-22] MEDS: HEPARIN 5,000 UNIT/1 ML VIAL SUB-Q SCH ×3 (05:50→21:22)
[2021-11-22] MEDS: INSULIN LISPRO 100 UNIT/ML SUB-Q SCH ×4 (08:50→23:02)
[2021-11-22] MEDS ORDERED: amLODIPine 5 MG TAB PO SCH (10:00)
[2021-11-22] MEDS ORDERED: LENALIDOMIDE 10 MG PO SCH (10:00)
[2021-11-22] MEDS ORDERED: TAMOXIFEN CITRATE 20 MG PO SCH (10:00)
[2021-11-22] MEDS: cefTRIAXone/NS 1 GM/50 ML 1 GM/50 ML BAG IV SCH (12:00)
[2021-11-22] MEDS: MORPHINE 4 MG/1 ML INJ IV PRN ×2 (12:35→17:03)
[2021-11-22] MEDS: carvediloL 6.25 MG TAB PO SCH ×2 (12:38→21:23)
--- NOTE | 2021-11-22 12:59 | Progress Note ---
Assessment and Plan 66-year-old female with known history of diabetes mellitus and left below-knee amputation presenting to the emergency room today for major complaints of low blood glucose 20s to 30s on the field. Work-up in the emergency room: lab reveals hyperkalemia of 5.6, lactic acid initially was 4.4. Chest x-ray reveals no acute abnormality. Patient had a gangrenous looking toe on the right foot which was x-rayed revealing overlying subcutaneous emphysema with findings concerning for osteomyelitis. Patient has been started on empiric IV antibiotics. Assessment: -- Hypoglycemia -- Right great to gangrene with osteomyelitis. -- Hyperkalemia, resolved -- Sepsis due to osteo -- DORCAS, likely vasomotor nephropathy -- s/p left AKA Plan: -- Patient placed on empiric IV antibiotics. -- We will also monitor Accu-Cheks closely. -- Monitor BMP -- consulted vascular and ID --resumed routine home medications once reconciled -- Consult placed to nephrology for evaluation and recommendation. -- DVT prophylaxis: Patient placed on subcutaneous heparin 11/20: cont empiric abx, ID consulted, follow cx, consult vascular, follow BMP 11/21. ; Consulted vascular for recommendation, plan for arteriogram on Tuesday, continue empiric antibiotics, ID following 11/22; She Vascular Doppler study indicated for monophasic blood flow. Plan for angiogram tomorrow. Continue to follow clinically with empiric antibiotics. Subjective Date of service: 11/22/21 Principal diagnosis: Toe gangrene Interval history: Patient seen and examined. Medical records and medication list reviewed. No acute event overnight noted by the RN. Patient denies any chest pain or difficulty breathing. Discussed plan of care at bedside with patient. Objective - Exam Narrative Exam: GENERAL: well-developed and well-nourished AAF lying on bed appeared to be in no discomfort. HEENT: Normocephalic. Atraumatic. No conjunctival congestion or icterus. Patient has moist mucous membranes. NECK: Supple. Trachea midline. CHEST/LUNGS: Clear to auscultated bilaterally, breathing nonlabored. No wheezes crackles or rhonchi. HEART/CARDIOVASCULAR: Regular in rate and rhythm. S1 and S2 positive. ABDOMEN: Abdomen is soft, nontender. Patient has normal bowel sounds. SKIN: There is no rash. Warm and dry. NEURO: No focal motor deficit. Follows command. MUSCULOSKELETAL: No joint effusion or tenderness. Extremities: ( left below-knee amputation.) ulceration (Right great toe appears gangrenous., Skin appears macerated and black), PSYCH: Cooperative. - Constitutional Vitals: Vital Signs - 12hr 11/22/21 05:48 Temperature 99.3 F Pulse Rate 64 Respiratory 18 Rate Blood Pressure 157/70 [Left] O2 Sat by Pulse 100 Oximetry - Labs CBC & Chem 7: 11/23/21 00:24 11/23/21 04:27 Labs: Abnormal lab results 11/21/21 11/21/21 11/22/21 Range/Units 15:35 21:32 07:42 POC Glucose 130 H 267 H 169 H (70-105) mg/dL 11/22/21 Range/Units 11:02 POC Glucose 242 H (70-105) mg/dL
[2021-11-22 13:09] LABS: BUN/Creatinine Ratio 11; Blood Urea Nitrogen 10 mg/dL (7-17); Calcium 7.9 mg/dL (8.4-10.2); Hemolysis Index 2
--- NOTE | 2021-11-22 14:03 | Vascular Lab Report ---
DUPLEX DOPPLER LOWER EXTREMITY ARTERIAL, BILATERAL INDICATION: gangrenous right 1st toe. TECHNIQUE: Arterial duplex examination of both lower extremities performed using B-mode, color flow and spectral Doppler assessment. FINDINGS: RIGHT: Common Femoral Artery: PSV 139 cm/sec. Biphasic waveform. Proximal SFA: PSV 155 cm/sec. Biphasic waveform. Mid SFA: PSV 177 cm/sec. Biphasic waveform. Distal SFA: PSV 166 cm/sec. Triphasic waveform. Popliteal artery: PSV 121 cm/sec. Triphasic waveform. Posterior tibial artery: PSV 66 cm/sec. Biphasic waveform. Dorsalis Pedis Artery: PSV 122 cm/sec. Monophasic waveform. LEFT: The patient is status post [id number] amputation. Common Femoral Artery: PSV 38 cm/sec. Biphasic waveform. Proximal SFA: Occluded. Mid SFA: Occluded. Distal SFA: Occluded. Popliteal artery: Occluded. Ankle-brachial indices were not measured. IMPRESSION: 1. Nonspecific monophasic flow in the right dorsalis pedis artery without other evidence of hemodynam ically significant right lower extremity peripheral artery disease. 2. Prior left below the knee amputation with occlusion of the majority of the vessels above the knee besides the common femoral artery. Signer Name: Riccardo Leblanc MD Signed: 11/22/2021 1:59 PM Workstation Name: [id number]
[2021-11-22] MEDS: hydrALAZINE 25 MG TAB PO SCH ×2 (14:08→21:23)
--- NOTE | 2021-11-22 16:53 | Progress Note ---
Assessment and Plan Acute kidney injury versus CKD, cr 1.8-->1.2-->0.8 Hyperkalemia Lactic acidosis Diabetes Mellitus Hypocalcemia Renal ultrasound report - pending Urinalysis reviewed, UPCR pending F/u ionized calcium, vit D and PTH Emphasized on continuation of low potassium diet Renally dose medications Avoid nephrotoxins Renal diet Renal function has normalized, follow peripherally to evaluate results of pending labs concerning hypocalcemia Subjective Date of service: 11/22/21 Principal diagnosis: Toe gangrene Interval history: Resting in bed. Notes good urine output. Objective - Exam Narrative Exam: General: No acute distress HEENT: Oral mucosa moist Neck: Supple, no JVD Chest: Clear to auscultation bilaterally Heart: RRR, S1 and S2, no pericardial rub Abdomen: Soft, nontender, no renal bruit Extremity: No peripheral cyanosis, left BKA. Right toe gangrene Neurological: Alert, awake, no asterixis Dermatology: No skin rash Psych: No agitation Musculoskeletal: No joint effusion - Vital Signs Vital signs: Vital Signs - 12hr 11/22/21 11/22/21 05:48 11:59 Temperature 99.3 F Pulse Rate 64 62 Respiratory 18 20 Rate Blood Pressure 164/69 Blood Pressure 157/70 [Left] O2 Sat by Pulse 100 100 Oximetry - Lab 11/21/21 05:09 11/22/21 11:00 Most recent lab results Calcium 7.9 mg/dL (8.4-10.2) L 11/22/21 11:00 Medications & Allergies - Medications Allergies/Adverse Reactions: Allergies sulfamethoxazole [From Bactrim] Allergy (Severe, Verified 11/20/21 16:16) Unknown renal failure trimethoprim [From Bactrim] Allergy (Severe, Verified 11/20/21 16:16) Unknown renal failure cephalexin [From Keflex] Allergy (Intermediate, Verified 11/20/21 16:20) Rash penicillin G Allergy (Intermediate, Verified 11/20/21 16:20) Rash Home Medications: Home Medications Medication Instructions Recorded Confirmed Last Taken Type Lenalidomide [Revlimid] 10 mg PO QDAY 11/21/21 11/21/21 Unknown History Tamoxifen Citrate 20 mg PO DAILY 11/21/21 11/21/21 Unknown History Valacyclovir HCl [Valacyclovir] 500 mg BID 11/21/21 11/21/21 Unknown History amLODIPine [Norvasc] 5 mg PO DAILY 11/21/21 11/21/21 Unknown History carvediloL [Coreg] 6.25 mg PO BID 11/21/21 11/21/21 Unknown History hydrALAZINE [Apresoline TAB] 10 mg PO BID 11/21/21 11/21/21 Unknown History Active Medications: Generic Name Dose Route Start Last Admin Trade Name Freq PRN Reason Stop Dose Admin Acetaminophen 650 mg 11/20/21 00:45 11/20/21 18:47 Acetaminophen 325 Mg Tab PO 650 mg Q4H PRN Administration Pain MILD(1-3)/Fever >100.5/BOLAND Amlodipine Besylate 10 mg 11/22/21 10:48 Amlodipine 10 Mg Tab PO DAILY MIMI Carvedilol 6.25 mg 11/21/21 22:00 11/22/21 12:38 Carvedilol 6.25 Mg Tab PO 6.25 mg BID MIMI Administration Dextrose 0 ml 11/20/21 00:45 Dextrose 50% In Water (25gm) 50 Ml Syringe IV Q30MIN PRN Hypoglycemia Protocol Heparin Sodium (Porcine) 5,000 unit 11/20/21 06:00 11/22/21 05:50 Heparin 5,000 Unit/1 Ml Vial SUB-Q 5,000 unit Q8HR MIMI Administration Hydralazine HCl 50 mg 11/22/21 10:48 Hydralazine 25 Mg Tab PO TID MIMI Sodium Chloride 1,000 mls @ 75 mls/hr 11/20/21 00:45 11/21/21 06:51 Nacl 0.9% 1000 Ml IV 125 mls/hr DIRECT MIMI Administration Vancomycin HCl 1 gm in 250 mls @ 250 mls/hr 11/21/21 00:00 11/22/21 00:49 Vancomycin/Ns 1 Gm/250 Ml IV 250 mls/hr Q24H MIMI Administration Ceftriaxone Sodium 1 gm in 50 mls @ 100 mls/hr 11/20/21 12:00 11/22/21 12:00 Rocephin/Ns 1 Gm/50 Ml IV 100 mls/hr Q24HR MIMI Administration Protocol Insulin Human Lispro 0 unit 11/20/21 18:00 11/21/21 21:35 Insulin Lispro 100 Unit/Ml SUB-Q 4 unit ACHS MIMI Administration Protocol Magnesium Hydroxide 30 ml 11/20/21 00:45 Magnesium Hydroxide (Mom) Oral Liqd Udc PO Q4H PRN Constipation Morphine Sulfate 2 mg 11/20/21 00:45 11/22/21 05:43 Morphine 2 Mg/1 Ml Inj IV 2 mg Q4H PRN Administration Pain, Moderate (4-6) Morphine Sulfate 4 mg 11/20/21 00:45 11/22/21 12:35 Morphine 4 Mg/1 Ml Inj IV 4 mg Q4H PRN Administration Pain , Severe (7-10) Ondansetron HCl 4 mg 11/20/21 00:45 Ondansetron 4 Mg/2 Ml Inj IV Q8H PRN Nausea And Vomiting Sodium Chloride 10 ml 11/20/21 10:00 11/22/21 12:38 Sodium Chloride 0.9% 10 Ml Flush Syringe IV 10 ml BID MIMI Administration Sodium Chloride 10 ml 11/20/21 00:45 Sodium Chloride 0.9% 10 Ml Flush Syringe IV PRN PRN LINE FLUSH
--- NOTE | 2021-11-22 23:19 | Event Note ---
Date: 11/22/21 Reviewed ultrasound which demonstrated monophasic waveforms in the right leg. NPO after MN except sips of water with meds. Plan for angiogram tomorrow.
[2021-11-23 01:08] LABS: Hematocrit 23.8 % (30.3-42.9); Hemoglobin 7.9 gm/dl (10.1-14.3); Mean Corpuscular HGB Conc 33 % (30-34); Mean Corpuscular Volume 104 fl (79-97); Platelet Count 124 K/mm3 (140-440); Red Blood Count 2.28 M/mm3 (3.65-5.03); Red Cell Distribution Width 14.9 % (13.2-15.2)
[2021-11-23 02:01] LABS: BUN/Creatinine Ratio 14; Blood Urea Nitrogen 11 mg/dL (7-17); Calcium 7.1 mg/dL (8.4-10.2); Hemolysis Index 12
[2021-11-23] MEDS: VANCOMYCIN/NS 1 GM/250 ML 1 GM/250 ML BAG IV SCH (02:12)
[2021-11-23 02:40] LABS: Anisocytosis 1+; Basophils % (Manual) 0 % (0.0-1.8); Eosinophils % (Manual) 0 % (0.0-4.3); Macrocytosis 1+; Platelet Estimate Consistent w Auto; Total Cells Counted 100
[2021-11-23 05:13] LABS: INR 0.88 (0.87-1.13)
[2021-11-23 05:26] LABS: BUN/Creatinine Ratio 12; Blood Urea Nitrogen 11 mg/dL (7-17); Calcium 8.1 mg/dL (8.4-10.2); Hemolysis Index 3
[2021-11-23] MEDS: HEPARIN 5,000 UNIT/1 ML VIAL SUB-Q SCH ×3 (06:00→23:24)
--- NOTE | 2021-11-23 07:06 | Ultrasound Report ---
ULTRASOUND RENAL INDICATION / CLINICAL INFORMATION: DORCAS. COMPARISON: None available. FINDINGS: RIGHT KIDNEY: Length = 11.8 cm. - Echogenicity: Normal. - Parenchymal Thickness: Normal. - Hydronephrosis: None. - Cyst / Mass: Several cysts. The largest measures 3 cm inferiorly. - Stones: None seen. LEFT KIDNEY: Length = 10 cm. - Echogenicity: Normal. - Parenchymal Thickness: Normal. - Hydronephrosis: None. - Cyst / Mass: Several cysts. The largest is at the upper pole measuring 2.1 cm. - Stones: None seen. URINARY BLADDER: No significant abnormality. FREE FLUID: None. ADDITIONAL FINDINGS: None. IMPRESSION: Benign-appearing renal cysts. Signer Name: Jagdish Mohr MD Signed: 11/23/2021 7:01 AM Workstation Name: [id number]
[2021-11-23] MEDS: INSULIN LISPRO 100 UNIT/ML SUB-Q SCH ×3 (07:57→23:25)
[2021-11-23] MEDS: hydrALAZINE 25 MG TAB PO SCH ×2 (08:58→14:58)
[2021-11-23] MEDS: carvediloL 6.25 MG TAB PO SCH ×2 (10:00→23:24)
--- NOTE | 2021-11-23 11:12 | Consultation ---
History of Present Illness - Reason for Consult Consult date: 11/23/21 toe gangrene Requesting physician: SHANE LUONG - History of Present Illness The patient is a 66-year-old female with diabetes, hypertension, breast cancer, multiple myeloma, prior left BKA admitted to the hospital due to hypoglycemia. She was also noted to have a gangrenous appearing right toe, was started on empiric antibiotics. Also found to have elevated creatinine. Low-grade temperature, no fever. MRI showed acute osteomyelitis involving the first toe proximal and distal p halanges with associated ulcer and subcutaneous gas and cellulitis. Review of Systems: General: no fevers,chills or rigors HEENT: no new visual disturbance Respiratory: No cough, sputum, hemoptysis or shortness of breath Cardiovascular: No chest pain, syncope Gastrointestinal: No nausea, vomiting or diarrhea Genitourinary: No dysuria or hematuria Musculoskeletal: No new or worsening neck pain or back pain Neurologic: No headaches, seizures Hematologic: No easy bruising or bleeding Endocrine: No night sweats or acute weight loss Skin: negative for rash, jaundice Psychiatric: No suicidal or homicidal ideation Past History Past Medical History: diabetes, hypertension, other (breast cancer, multiple myeloma) Past Surgical History: Other (Left BKA) Social history: no significant social history Family history: no significant family history Medications and Allergies Allergies Allergy/AdvReac Type Severity Reaction Status Date / Time sulfamethoxazole Allergy Severe Unknown Verified 11/20/21 16:16 [From Bactrim] trimethoprim [From Bactrim] Allergy Severe Unknown Verified 11/20/21 16:16 cephalexin [From Keflex] Allergy Intermediate Rash Verified 11/20/21 16:20 penicillin G Allergy Intermediate Rash Verified 11/20/21 16:20 Home Medications Medication Instructions Recorded Confirmed Last Taken Type Lenalidomide [Revlimid] 10 mg PO QDAY 11/21/21 11/21/21 Unknown History Tamoxifen Citrate 20 mg PO DAILY 11/21/21 11/21/21 Unknown History Valacyclovir HCl [Valacyclovir] 500 mg BID 11/21/21 11/21/21 Unknown History amLODIPine [Norvasc] 5 mg PO DAILY 11/21/21 11/21/21 Unknown History carvediloL [Coreg] 6.25 mg PO BID 11/21/21 11/21/21 Unknown History hydrALAZINE [Apresoline TAB] 10 mg PO BID 11/21/21 11/21/21 Unknown History Active Meds: Active Medications Acetaminophen (Acetaminophen 325 Mg Tab) 650 mg PO Q4H PRN PRN Reason: Pain MILD(1-3)/Fever >100.5/BOLAND Last Admin: 11/20/21 18:47 Dose: 650 mg Amlodipine Besylate (Amlodipine 10 Mg Tab) 10 mg PO DAILY [facility] Carvedilol (Carvedilol 6.25 Mg Tab) 6.25 mg PO BID [facility] Last Admin: 11/22/21 21:23 Dose: 6.25 mg Dextrose (Dextrose 50% In Water (25gm) 50 Ml Syringe) 0 ml IV Q30MIN PRN; Protocol PRN Reason: Hypoglycemia Heparin Sodium (Porcine) (Heparin 5,000 Unit/1 Ml Vial) 5,000 unit SUB-Q Q8HR [facility] Last Admin: 11/23/21 06:00 Dose: Not Given Hydralazine HCl (Hydralazine 25 Mg Tab) 50 mg PO TID [facility] Last Admin: 11/22/21 21:23 Dose: 50 mg Sodium Chloride (Nacl 0.9% 1000 Ml) 1,000 mls @ 75 mls/hr IV DIRECT MIMI Last Admin: 11/21/21 06:51 Dose: 125 mls/hr Vancomycin HCl (Vancomycin/Ns 1 Gm/250 Ml) 1 gm in 250 mls @ 250 mls/hr IV Q24H [facility] Last Admin: 11/23/21 02:12 Dose: 250 mls/hr Ceftriaxone Sodium (Rocephin/Ns 1 Gm/50 Ml) 1 gm in 50 mls @ 100 mls/hr IV Q24HR [facility]; Protocol Last Admin: 11/22/21 12:00 Dose: 100 mls/hr Insulin Human Lispro (Insulin Lispro 100 Unit/Ml) 0 unit SUB-Q ACHS [facility]; Protocol Last Admin: 11/22/21 23:02 Dose: 2 unit Magnesium Hydroxide (Magnesium Hydroxide (Mom) Oral Liqd Udc) 30 ml PO Q4H PRN PRN Reason: Constipation Morphine Sulfate (Morphine 2 Mg/1 Ml Inj) 2 mg IV Q4H PRN PRN Reason: Pain, Moderate (4-6) Last Admin: 11/22/21 05:43 Dose: 2 mg Morphine Sulfate (Morphine 4 Mg/1 Ml Inj) 4 mg IV Q4H PRN PRN Reason: Pain , Severe (7-10) Last Admin: 11/22/21 17:03 Dose: 4 mg Ondansetron HCl (Ondansetron 4 Mg/2 Ml Inj) 4 mg IV Q8H PRN PRN Reason: Nausea And Vomiting Sodium Chloride (Sodium Chloride 0.9% 10 Ml Flush Syringe) 10 ml IV BID MIMI Last Admin: 11/22/21 21:25 Dose: 10 ml Sodium Chloride (Sodium Chloride 0.9% 10 Ml Flush Syringe) 10 ml IV PRN PRN PRN Reason: LINE FLUSH Physical Examination - Physical Exam Narrative exam: Physical Exam: Constitutional: Alert, cooperative. No acute distress Head, Ears, Nose: Normocephalic, atraumatic. External ears, nose normal Eyes: Conjunctivae/corneas clear. No icterus. No ptosis. Neck: Supple, no meningeal signs Cardiovascular: S1, S2 + Respiratory: Good air entry, clear to auscultation bilaterally GI: Soft, non-tender; bowel sounds normal. No peritoneal signs Musculoskeletal: Right foot in dressing. Left BKA. Skin: No rash or abscess Hem/Lymphatic: No palpable cervical or supraclavicular nodes. No lymphangitis Psych: Mood ok. Affect normal Neurological: Awake, alert, oriented. No gross abnormality - Constitutional Vitals: Vital Signs Temp Pulse Resp BP Pulse Ox 98.5 F 65 17 152/63 100 11/23/21 05:54 11/23/21 05:54 11/23/21 05:54 11/23/21 05:54 11/23/21 05:54 Temperature -Last 24 Hours Temperature 98.5 F Temperature 99 F Results - Labs CBC & Chem 7: 11/23/21 00:24 11/23/21 04:27 Labs: Abnormal lab results 11/22/21 11/22/21 11/22/21 Range/Units 11:00 16:30 21:36 WBC (4.5-11.0) K/mm3 RBC (3.65-5.03) M/mm3 Hgb (10.1-14.3) gm/dl Hct (30.3-42.9) % MCV (79-97) fl MCH (28-32) pg Plt Count (140-440) K/mm3 Seg Neutrophils # Man (1.8-7.7) K/mm3 Lymphocytes # (Manual) (1.2-5.4) K/mm3 Sodium 136 L (137-145) mmol/L Potassium (3.6-5.0) mmol/L Chloride (98-107) mmol/L Glucose 231 H (65-100) mg/dL POC Glucose 253 H 169 H (70-105) mg/dL Calcium 7.9 L (8.4-10.2) mg/dL 11/23/21 11/23/21 11/23/21 Range/Units 00:20 00:24 04:27 WBC 2.1 L (4.5-11.0) K/mm3 RBC 2.28 L (3.65-5.03) M/mm3 Hgb 7.9 L (10.1-14.3) gm/dl Hct 23.8 L (30.3-42.9) % MCV 104 H (79-97) fl MCH 35 H (28-32) pg Plt Count 124 L (140-440) K/mm3 Seg Neutrophils # Man 1.3 L (1.8-7.7) K/mm3 Lymphocytes # (Manual) 0.7 L (1.2-5.4) K/mm3 Sodium 135 L (137-145) mmol/L Potassium 3.1 L 3.4 L (3.6-5.0) mmol/L Chloride 107.4 H (98-107) mmol/L Glucose 140 H 131 H (65-100) mg/dL POC Glucose (70-105) mg/dL Calcium 7.1 L 8.1 L (8.4-10.2) mg/dL 11/23/21 Range/Units 07:49 WBC (4.5-11.0) K/mm3 RBC (3.65-5.03) M/mm3 Hgb (10.1-14.3) gm/dl Hct (30.3-42.9) % MCV (79-97) fl MCH (28-32) pg Plt Count (140-440) K/mm3 Seg Neutrophils # Man (1.8-7.7) K/mm3 Lymphocytes # (Manual) (1.2-5.4) K/mm3 Sodium (137-145) mmol/L Potassium (3.6-5.0) mmol/L Chloride (98-107) mmol/L Glucose (65-100) mg/dL POC Glucose 166 H (70-105) mg/dL Calcium (8.4-10.2) mg/dL - Imaging and Cardiology Chest x-ray: report reviewed, image reviewed (no pneumonia) Assessment and Plan Cultures: 11/19/2021 blood culture: GPC in 1 of 4 bottles 11/19/2021 urine culture: Mixed joe A/P: 66-year-old female with diabetes, hypertension, breast cancer, multiple myeloma, prior left BKA admitted to the hospital due to hypoglycemia. She was also noted to have a gangrenous appearing right toe: #Right great toe gangrene and acute osteomyelitis: Etiology diabetes and peripheral vascular disease. #GPC bacteremia #Peripheral vascular disease: Prior left BKA. Vascular following. #Leukopenia: Probably related to history of multiple myeloma, breast cancer. Patient states both are in remission, but oncologist is in [place]. Last chemo must have been around a year ago, does not remember the exact details. #Diabetes mellitus #Penicillin allergy, tolerating ceftriaxone without issues #DORCAS: Improved. Recs: Follow-up blood cultures Continue ceftriaxone, vancomycin for now Flagyl added Please also consult surgery, patient may require a toe amputation Analia Salcedo MD, FACP, NED [facility] O: [phone] F: [phone] C: [phone]
[2021-11-23] MEDS ORDERED: HEPARIN/NS 5000 UNIT/500ML 1,000 ML IR ONE (12:07)
[2021-11-23] MEDS ORDERED: HEPARIN 10,000 UNITS/10 ML VIAL ONE (12:08)
[2021-11-23] MEDS: SODIUM CHLORIDE 0.9% 500 ML 500 ML IV SCH ×2 (12:27→12:52)
[2021-11-23] MEDS: LIDOCAINE 2%/EPINEPHRINE 1:200,000 VIAL (20 ML) INFILTRATI ONE ×2 (12:51→13:12)
[2021-11-23] MEDS: MIDAZOLAM 2 MG/2 ML INJ ONE ×3 (12:51→13:16)
[2021-11-23] MEDS: fentaNYL 100 MCG/2 ML INJ ONE ×3 (12:51→13:16)
--- NOTE | 2021-11-23 13:51 | Progress Note ---
Assessment and Plan 66-year-old female with known history of diabetes mellitus and left below-knee amputation presenting to the emergency room today for major complaints of low blood glucose 20s to 30s on the field. Work-up in the emergency room: lab reveals hyperkalemia of 5.6, lactic acid initially was 4.4. Chest x-ray reveals no acute abnormality. Patient had a gangrenous looking toe on the right foot which was x-rayed revealing overlying subcutaneous emphysema with findings concerning for osteomyelitis. Patient has been started on empiric IV antibiotics. Assessment: -- Hypoglycemia -- Right great to gangrene with osteomyelitis. -- Hyperkalemia, resolved -- Sepsis due to osteo -- DORCAS, likely vasomotor nephropathy -- s/p left AKA Plan: -- Patient placed on empiric IV antibiotics. -- We will also monitor Accu-Cheks closely. -- Monitor BMP -- consulted vascular and ID --resumed routine home medications once reconciled -- Consult placed to nephrology for evaluation and recommendation. -- DVT prophylaxis: Patient placed on subcutaneous heparin 11/20: cont empiric abx, ID consulted, follow cx, consult vascular, follow BMP 11/21. ; Consulted vascular for recommendation, plan for arteriogram on Tuesday, continue empiric antibiotics, ID following 11/22; She Vascular Doppler study indicated for monophasic blood flow. Plan for angiogram tomorrow. Continue to follow clinically with empiric antibiotics. 11/23: s/p diagnostic angiogram of the right lower extremity. The patient has two-vessel runoff to the right foot with a dominant dorsalis pedis artery. Vascular Recommended general surgery evaluation. cont empiric abx. wound care Subjective Date of service: 11/23/21 Principal diagnosis: Toe gangrene Interval history: Patient seen and examined. Medical records and medication list reviewed. No acute event overnight noted by the RN. Patient denies any chest pain or difficulty breathing. Discussed plan of care at bedside with patient. Objective - Exam Narrative Exam: GENERAL: well-developed and well-nourished AAF lying on bed appeared to be in no discomfort. HEENT: Normocephalic. Atraumatic. No conjunctival congestion or icterus. Patient has moist mucous membranes. NECK: Supple. Trachea midline. CHEST/LUNGS: Clear to auscultated bilaterally, breathing nonlabored. No wheezes crackles or rhonchi. HEART/CARDIOVASCULAR: Regular in rate and rhythm. S1 and S2 positive. ABDOMEN: Abdomen is soft, nontender. Patient has normal bowel sounds. SKIN: There is no rash. Warm and dry. NEURO: No focal motor deficit. Follows command. MUSCULOSKELETAL: No joint effusion or tenderness. Extremities: ( left below-knee amputation.) ulceration (Right great toe appears gangrenous., Skin appears macerated and black), PSYCH: Cooperative. - Constitutional Vitals: Vital Signs - 12hr 11/23/21 05:54 Temperature 98.5 F Pulse Rate 65 Respiratory 17 Rate Blood Pressure 152/63 [Left] O2 Sat by Pulse 100 Oximetry - Labs CBC & Chem 7: 11/23/21 00:24 11/23/21 04:27 Labs: Abnormal lab results 11/22/21 11/22/21 11/23/21 Range/Units 16:30 21:36 00:20 WBC (4.5-11.0) K/mm3 RBC (3.65-5.03) M/mm3 Hgb (10.1-14.3) gm/dl Hct (30.3-42.9) % MCV (79-97) fl MCH (28-32) pg Plt Count (140-440) K/mm3 Seg Neutrophils # Man (1.8-7.7) K/mm3 Lymphocytes # (Manual) (1.2-5.4) K/mm3 Sodium (137-145) mmol/L Potassium 3.1 L (3.6-5.0) mmol/L Chloride 107.4 H (98-107) mmol/L Glucose 140 H (65-100) mg/dL POC Glucose 253 H 169 H (70-105) mg/dL Calcium 7.1 L (8.4-10.2) mg/dL 11/23/21 11/23/21 11/23/21 Range/Units 00:24 04:27 07:49 WBC 2.1 L (4.5-11.0) K/mm3 RBC 2.28 L (3.65-5.03) M/mm3 Hgb 7.9 L (10.1-14.3) gm/dl Hct 23.8 L (30.3-42.9) % MCV 104 H (79-97) fl MCH 35 H (28-32) pg Plt Count 124 L (140-440) K/mm3 Seg Neutrophils # Man 1.3 L (1.8-7.7) K/mm3 Lymphocytes # (Manual) 0.7 L (1.2-5.4) K/mm3 Sodium 135 L (137-145) mmol/L Potassium 3.4 L (3.6-5.0) mmol/L Chloride (98-107) mmol/L Glucose 131 H (65-100) mg/dL POC Glucose 166 H (70-105) mg/dL Calcium 8.1 L (8.4-10.2) mg/dL 11/23/21 Range/Units 11:15 WBC (4.5-11.0) K/mm3 RBC (3.65-5.03) M/mm3 Hgb (10.1-14.3) gm/dl Hct (30.3-42.9) % MCV (79-97) fl MCH (28-32) pg Plt Count (140-440) K/mm3 Seg Neutrophils # Man (1.8-7.7) K/mm3 Lymphocytes # (Manual) (1.2-5.4) K/mm3 Sodium (137-145) mmol/L Potassium (3.6-5.0) mmol/L Chloride (98-107) mmol/L Glucose (65-100) mg/dL POC Glucose 195 H (70-105) mg/dL Calcium (8.4-10.2) mg/dL
--- NOTE | 2021-11-23 13:56 | Operative Report ---
Operative Report Operative Report: EXAM: 1. Ultrasound-guided access of the left common femoral artery. 2. Angiography of the left lower extremity. 3. Selection of the abdominal aorta with angiography. 4. Selection of the right external iliac artery, common femoral artery, and superficial femoral artery with angiography of the right lower extremity. DATE: 11/23/2021 LITHOPRESS OPERATOR: ANISHA CHING MD INDICATION: Abnormal arterial duplex of the right tibial vessels. Gangrene of right first digit. MEDICATIONS: Please see nursing report for full details. DEVICES: None CONTRAST: Please see Student Services Counselor surgery operative for full details. PROCEDURE: The risks, benefits, and alternatives were discussed with the patient; written informed consent was obtained. The patient was prepped and draped in a sterile fashion and both groins were prepped and draped in a sterile fashion. The left common femoral artery was assessed by ultrasound and determined to be patent. The area was anesthetized. A 21-gauge micropuncture needle was used to access the left common femoral artery under direct ultrasound guidance. 0.018 inch wire was passed into the artery. The needle was exchanged for a transitional dilator. Inner dilator and wire were removed. 0.035 inch wire was passed centrally into the aorta. The transitional dilator was exchanged for a 5 [place] sheath. Digital subtraction angiography was performed through the sheath demonstrating an appropriate puncture, above the bifurcation below the inferior epigastric artery. The left common iliac artery, internal iliac artery, external iliac artery, common femoral artery, and profunda femoral artery are patent. The superficial femoral artery is occluded throughout its course. Flush catheter was used to select the aorta. Digital subtraction angiography was performed demonstrating patency of the infrarenal abdominal aorta, bilateral common iliac arteries, internal iliac arteries, and external iliac arteries.. Catheter was used to select the right external iliac artery, common femoral artery, and superficial femoral artery and digital subtraction angiography demonstrated patency of the right common femoral artery, and profunda femoral artery. There are intermittent 30 to 40% stenotic lesions in the right superficial femoral artery and [id number] popliteal artery. No high-grade lesion noted. The right mid and below the knee popliteal artery are patent. The right anterior tibial artery is patent throughout its course. The right tibioperoneal trunk was patent. The right peroneal artery is patent to the level of the ankle. There are collaterals feeding the heel. The right posterior tibial artery is diminutive in size and becomes occluded at the level of the common plantar artery. There is some retrograde flow through the lateral and medial plantar artery. After reviewing the images, and noting the physical exam with a bounding dorsalis pedis pulse, I decided against intervention at this time. The patient will follow-up in 1 to 2 weeks. If she fails to heal at that time, then can perform endovascular revascularization of the right superficial femoral artery and [id number] popliteal artery. FINDINGS: Please see procedure note above. IMPRESSION: Successful angiography with selection of the right lower extremity.
--- NOTE | 2021-11-23 14:01 | Event Note ---
Date: 11/23/21 Performed diagnostic angiogram of the right lower extremity. The patient has two-vessel runoff to the right foot with a dominant dorsalis pedis artery. The dorsalis pedis artery feeds the first digit ulceration. Recommend general surgery evaluation. Recommend infectious disease evaluation. Can follow-up with vascular as an outpatient in 1 to 2 weeks. If there is any failure to heal at that time, then can perform revascularization. Overall, doubt this is a primary vascular issue.
[2021-11-23] MEDS: metroNIDAZOLE/NS 500 MG/100 ML 500 MG/100 ML BAG IV SCH ×2 (15:30→23:26)
[2021-11-23] MEDS: CILOSTAZOL 100 MG TAB PO SCH ×2 (16:16→23:24)
[2021-11-23] MEDS: amLODIPine 10 MG TAB PO SCH (16:17)
[2021-11-23] MEDS: cefTRIAXone/NS 1 GM/50 ML 1 GM/50 ML BAG IV SCH (16:17)
[2021-11-23] MEDS: MORPHINE 2 MG/1 ML INJ IV PRN (23:25)
[2021-11-23] MEDS ORDERED: POTASSIUM CHLORIDE ER 20 MEQ TAB PO ONE (23:51)
[2021-11-24] MEDS: hydrALAZINE 25 MG TAB PO SCH ×4 (00:54→20:32)
[2021-11-24] MEDS: VANCOMYCIN/NS 1 GM/250 ML 1 GM/250 ML BAG IV SCH (00:58)
[2021-11-24] MEDS: HEPARIN 5,000 UNIT/1 ML VIAL SUB-Q SCH ×3 (05:55→22:14)
[2021-11-24] MEDS: metroNIDAZOLE/NS 500 MG/100 ML 500 MG/100 ML BAG IV SCH ×3 (05:56→22:15)
[2021-11-24 06:18] LABS: BUN/Creatinine Ratio 12; Blood Urea Nitrogen 12 mg/dL (7-17); Calcium 7.9 mg/dL (8.4-10.2); Hemolysis Index 1
--- NOTE | 2021-11-24 07:33 | Progress Note ---
Assessment and Plan Assessment and plan: 66-year-old female with known history of diabetes mellitus and left below-knee amputation presenting to the emergency room today for major complaints of low blood glucose 20s to 30s on the field. Work-up in the emergency room: lab reveals hyperkalemia of 5.6, lactic acid initially was 4.4. Chest x-ray reveals no acute abnormality. Patient had a gangrenous looking toe on the right foot which was x-rayed revealing overlying subcutaneous emphysema with findings concerning for osteomyelitis. Patient has been started on empiric IV antibiotics. -- Hypoglycemia: Present on admission, now resolved Accu-Cheks sliding scale coverage ADA diet Insulin as needed, check HbA1c Diabetic education, diabetic diet nutrition education Home health nurse upon discharge for disease monitoring -- Right great to gangrene with osteomyelitis. Surgery, ID and vascular following, Follow cultures Continue current antibiotics Rocephin, Flagyl and Vanco Surgery planning amputation of the right great toe Awaiting OR scheduling[discussed with surgeon Dr. Collins] -- Sepsis due to osteomyelitis: of the right great toe; Continue Rocephin, Flagyl and vancomycin follow cultures ID following -- hypoglycemia; Closely monitor electrolytes and replenish as needed --Acute kidney injury; vasomotor nephropathy Resolved, monitor renal function avoid nephrotoxins -- History of hypertension; well-controlled Continue current management -- History of left AKA ; Supportive care --DVT prophylaxis; Subcu heparin Closely monitor the patient and adjust management as needed Plan of care reviewed with the patient and her nurse Die Cast Operator recommendations noted and appreciated Surgeon Dr. Collins planning amputation of the right great toe Awaiting OR scheduling DC planning per case management when medically stable Daily Hospital course: 11/20: cont empiric abx, ID consulted, follow cx, consult vascular, follow BMP 11/21. ; Consulted vascular for recommendation, plan for arteriogram on Tuesday, continue empiric antibiotics, ID following 11/22; She Vascular Doppler study indicated for monophasic blood flow. Plan for angiogram tomorrow. Continue to follow clinically with empiric antibiotics. 11/23: s/p diagnostic angiogram of the right lower extremity. The patient has two-vessel runoff to the right foot with a dominant dorsalis pedis artery. Vascular Recommended general surgery evaluation. cont empiric abx. wound care 11/24; follow electrolytes, continue current antibiotics, follow consultants recommendations History Interval history: I have seen and examined the patient at the bedside Patient's chart and medications reviewed No new overnight events reported by the nursing Patient is being followed by vascular, infectious diseases and surgical team Patient complains of some pain, relieved by as needed pain medications Vital signs noted Hospitalist Physical - Constitutional Vitals: Temp Pulse Resp BP Pulse Ox 98.1 F 76 16 129/59 97 11/24/21 04:26 11/24/21 04:26 11/24/21 04:26 11/24/21 04:26 11/24/21 04:26 General appearance: Present: mild distress, well-nourished - EENT Eyes: Present: PERRL, EOM intact - Neck Neck: Present: supple, normal ROM - Respiratory Respiratory effort: normal Respiratory: bilateral: diminished, negative: rales, rhonchi, wheezing - Cardiovascular Rhythm: regular Heart Sounds: Present: S1 & S2 - Extremities Extremities: abnormal (Right foot great toe gangrene) - Abdominal General gastrointestinal: soft, non-tender, non-distended, normal bowel sounds - Integumentary Integumentary: Present: clear, warm - Psychiatric Psychiatric: appropriate mood/affect, cooperative - Neurologic Neurologic: moves all extremities Results - Labs CBC & Chem 7: 11/24/21 05:23 11/24/21 05:23 Labs: Laboratory Last Values WBC 2.1 K/mm3 (4.5-11.0) L 11/23/21 00:24 RBC 2.28 M/mm3 (3.65-5.03) L 11/23/21 00:24 Hgb 7.9 gm/dl (10.1-14.3) L 11/23/21 00:24 Hct 23.8 % (30.3-42.9) L 11/23/21 00:24 MCV 104 fl (79-97) H 11/23/21 00:24 MCH 35 pg (28-32) H 11/23/21 00:24 MCHC 33 % (30-34) 11/23/21 00:24 RDW 14.9 % (13.2-15.2) 11/23/21 00:24 Plt Count 124 K/mm3 (140-440) L 11/23/21 00:24 Add Manual Diff Complete 11/23/21 00:24 Total Counted 100 11/23/21 00:24 Seg Neuts % (Manual) 62.0 % (40.0-70.0) 11/23/21 00:24 Band Neutrophils % 1.0 % 11/23/21 00:24 Lymphocytes % (Manual) 34.0 % (13.4-35.0) 11/23/21 00:24 Reactive Lymphs % (Man) 0 % 11/23/21 00:24 Monocytes % (Manual) 3.0 % (0.0-7.3) 11/23/21 00:24 Eosinophils % (Manual) 0 % (0.0-4.3) 11/23/21 00:24 Basophils % (Manual) 0 % (0.0-1.8) 11/23/21 00:24 Metamyelocytes % 0 % 11/23/21 00:24 Myelocytes % 0 % 11/23/21 00:24 Promyelocytes % 0 % 11/23/21 00:24 Blast Cells % 0 % 11/23/21 00:24 Nucleated RBC % Not Reportable 11/23/21 00:24 Seg Neutrophils # Man 1.3 K/mm3 (1.8-7.7) L 11/23/21 00:24 Band Neutrophils # 0.0 K/mm3 11/23/21 00:24 Lymphocytes # (Manual) 0.7 K/mm3 (1.2-5.4) L 11/23/21 00:24 Abs React Lymphs (Man) 0.0 K/mm3 11/23/21 00:24 Monocytes # (Manual) 0.1 K/mm3 (0.0-0.8) 11/23/21 00:24 Eosinophils # (Manual) 0.0 K/mm3 (0.0-0.4) 11/23/21 00:24 Basophils # (Manual) 0.0 K/mm3 (0.0-0.1) 11/23/21 00:24 Metamyelocytes # 0.0 K/mm3 11/23/21 00:24 Myelocytes # 0.0 K/mm3 11/23/21 00:24 Promyelocytes # 0.0 K/mm3 11/23/21 00:24 Blast Cells # 0.0 K/mm3 11/23/21 00:24 WBC Morphology Not Reportable 11/23/21 00:24 Hypersegmented Neuts Not Reportable 11/23/21 00:24 Hyposegmented Neuts Not Reportable 11/23/21 00:24 Hypogranular Neuts Not Reportable 11/23/21 00:24 Smudge Cells Not Reportable 11/23/21 00:24 Toxic Granulation Not Reportable 11/23/21 00:24 Toxic Vacuolation Not Reportable 11/23/21 00:24 Dohle Bodies Not Reportable 11/23/21 00:24 Pelger-Huet Anomaly Not Reportable 11/23/21 00:24 Estrada Rods Not Reportable 11/23/21 00:24 Platelet Estimate Consistent w auto 11/23/21 00:24 Clumped Platelets Not Reportable 11/23/21 00:24 Plt Clumps, EDTA Not Reportable 11/23/21 00:24 Large Platelets Not Reportable 11/23/21 00:24 Giant Platelets Not Reportable 11/23/21 00:24 Platelet Satelliting Not Reportable 11/23/21 00:24 Plt Morphology Comment Not Reportable 11/23/21 00:24 RBC Morphology Not Reportable 11/23/21 00:24 Dimorphic RBCs Not Reportable 11/23/21 00:24 Polychromasia Not Reportable 11/23/21 00:24 Hypochromasia Not Reportable 11/23/21 00:24 Poikilocytosis Not Reportable 11/23/21 00:24 Anisocytosis 1+ 11/23/21 00:24 Microcytosis Not Reportable 11/23/21 00:24 Macrocytosis 1+ 11/23/21 00:24 Spherocytes Not Reportable 11/23/21 00:24 Pappenheimer Bodies Not Reportable 11/23/21 00:24 Sickle Cells Not Reportable 11/23/21 00:24 Target Cells Not Reportable 11/23/21 00:24 Tear Drop Cells Not Reportable 11/23/21 00:24 Ovalocytes Not Reportable 11/23/21 00:24 Helmet Cells Not Reportable 11/23/21 00:24 [place] Bodies Not Reportable 11/23/21 00:24 [place] Rings Not Reportable 11/23/21 00:24 [place] Cells Not Reportable 11/23/21 00:24 Bite Cells Not Reportable 11/23/21 00:24 Crenated Cell Not Reportable 11/23/21 00:24 Elliptocytes Not Reportable 11/23/21 00:24 Acanthocytes (Spur) Not Reportable 11/23/21 00:24 Rouleaux Not Reportable 11/23/21 00:24 Hemoglobin C Crystals Not Reportable 11/23/21 00:24 Schistocytes Not Reportable 11/23/21 00:24 Malaria parasites Not Reportable 11/23/21 00:24 Hany Bodies Not Reportable 11/23/21 00:24 Hem Pathologist Commnt No 11/23/21 00:24 PT 12.9 Sec. (12.2-14.9) 11/23/21 04:27 INR 0.88 (0.87-1.13) 11/23/21 04:27 Sodium 137 mmol/L (137-145) 11/24/21 05:23 Potassium 3.5 mmol/L (3.6-5.0) L 11/24/21 05:23 Chloride 104.4 mmol/L (98-107) 11/24/21 05:23 Carbon Dioxide 24 mmol/L (22-30) 11/24/21 05:23 Anion Gap 12 mmol/L 11/24/21 05:23 BUN 12 mg/dL (7-17) 11/24/21 05:23 Creatinine 1.0 mg/dL (0.6-1.2) 11/24/21 05:23 Estimated GFR > 60 ml/min 11/24/21 05:23 BUN/Creatinine Ratio 12 % 11/24/21 05:23 Glucose 170 mg/dL (65-100) H 11/24/21 05:23 POC Glucose 210 mg/dL (70-105) H 11/24/21 07:21 Lactic Acid 1.90 mmol/L (0.7-2.0) 11/20/21 00:32 Calcium 7.9 mg/dL (8.4-10.2) L 11/24/21 05:23 Total Bilirubin 0.20 mg/dL (0.1-1.2) 11/19/21 21:44 AST 12 units/L (5-40) 11/19/21 21:44 ALT 8 units/L (7-56) 11/19/21 21:44 Alkaline Phosphatase 54 units/L (35-129) 11/19/21 21:44 Total Protein 7.4 g/dL (6.3-8.2) 11/19/21 21:44 Albumin 3.4 g/dL (3.9-5) L 11/19/21 21:44 Albumin/Globulin Ratio 0.9 % 11/19/21 21:44 Urine Color Yellow (Yellow) 11/19/21 Unknown Urine Turbidity Clear (Clear) 11/19/21 Unknown Urine pH 6.0 (5.0-7.0) 11/19/21 Unknown Ur Specific [place] 1.020 (1.003-1.030) 11/19/21 Unknown Urine Protein 30 mg/dl mg/dL (Negative) 11/19/21 Unknown Urine Glucose (UA) 1000 mg/dL (Negative) 11/19/21 Unknown Urine Ketones Negative mg/dL (Negative) 11/19/21 Unknown Urine Blood Negative (Negative) 11/19/21 Unknown Urine Nitrite Negative (Negative) 11/19/21 Unknown Ur Reducing Substances Not Reportable 11/19/21 Unknown Urine Bilirubin Negative (Negative) 11/19/21 Unknown Urine Ictotest Not Reportable 11/19/21 Unknown Urine Urobilinogen 0.0 mg/dL (<2.0) 11/19/21 Unknown Ur Leukocyte Esterase Negative (Negative) 11/19/21 Unknown Urine WBC (Auto) 7.0 /HPF (0.0-6.0) H 11/19/21 Unknown Urine RBC (Auto) 2.0 /HPF (0.0-6.0) 11/19/21 Unknown U Epithel Cells (Auto) 8.0 /HPF (0-13.0) 11/19/21 Unknown Urine Bacteria (Auto) 3+ /HPF (Negative) 11/19/21 Unknown Urine Mucus Few /HPF 11/19/21 Unknown Nasal Screen MRSA (PCR) Negative (Negative) 11/21/21 Unknown Vancomycin Trough 12.0 ug/mL (5.0-20.0) 11/23/21 00:20 Microbiology: Microbiology 11/19/21 21:44 Peripheral/Venous Blood Culture - Preliminary NO GROWTH AFTER 4 DAYS [place]/IV: Voiding Method External Female Catheter Active Medications - Current Medications Current Medications: Generic Name Dose Route Start Last Admin Trade Name Freq PRN Reason Stop Dose Admin Acetaminophen 650 mg 11/20/21 00:45 11/20/21 18:47 Acetaminophen 325 Mg Tab PO 650 mg Q4H PRN Administration Pain MILD(1-3)/Fever >100.5/BOLAND Amlodipine Besylate 10 mg 11/22/21 10:48 11/23/21 16:17 Amlodipine 10 Mg Tab PO 10 mg DAILY MIMI Administration Carvedilol 6.25 mg 11/21/21 22:00 11/23/21 23:24 Carvedilol 6.25 Mg Tab PO 6.25 mg BID MIMI Administration Cilostazol 100 mg 11/23/21 15:00 11/23/21 23:24 Cilostazol 100 Mg Tab PO 100 mg BID MIMI Administration Dextrose 0 ml 11/20/21 00:45 Dextrose 50% In Water (25gm) 50 Ml Syringe IV Q30MIN PRN Hypoglycemia Protocol Heparin Sodium (Porcine) 5,000 unit 11/20/21 06:00 11/24/21 05:55 Heparin 5,000 Unit/1 Ml Vial SUB-Q 5,000 unit Q8HR MIMI Administration Hydralazine HCl 50 mg 11/22/21 10:48 11/24/21 00:54 Hydralazine 25 Mg Tab PO 50 mg TID MMII Administration Sodium Chloride 1,000 mls @ 75 mls/hr 11/20/21 00:45 11/21/21 06:51 Nacl 0.9% 1000 Ml IV 125 mls/hr DIRECT MIMI Administration Vancomycin HCl 1 gm in 250 mls @ 250 mls/hr 11/21/21 00:00 11/24/21 00:58 Vancomycin/Ns 1 Gm/250 Ml IV 250 mls/hr Q24H MIMI Administration Ceftriaxone Sodium 1 gm in 50 mls @ 100 mls/hr 11/20/21 12:00 11/23/21 16:17 Rocephin/Ns 1 Gm/50 Ml IV 100 mls/hr Q24HR MIMI Administration Protocol Metronidazole 500 mg in 100 mls @ 100 mls/hr 11/23/21 12:30 11/24/21 05:56 Flagyl 500 Mg/100 Ml IV 100 mls/hr Q8HR MIMI Administration Protocol Insulin Human Lispro 0 unit 11/20/21 18:00 11/23/21 23:25 Insulin Lispro 100 Unit/Ml SUB-Q 2 unit ACHS MIMI Administration Protocol Magnesium Hydroxide 30 ml 11/20/21 00:45 Magnesium Hydroxide (Mom) Oral Liqd Udc PO Q4H PRN Constipation Morphine Sulfate 2 mg 11/20/21 00:45 11/23/21 23:25 Morphine 2 Mg/1 Ml Inj IV 2 mg Q4H PRN Administration Pain, Moderate (4-6) Morphine Sulfate 4 mg 11/20/21 00:45 11/22/21 17:03 Morphine 4 Mg/1 Ml Inj IV 4 mg Q4H PRN Administration Pain , Severe (7-10) Ondansetron HCl 4 mg 11/20/21 00:45 Ondansetron 4 Mg/2 Ml Inj IV Q8H PRN Nausea And Vomiting Sodium Chloride 10 ml 11/20/21 10:00 11/23/21 23:26 Sodium Chloride 0.9% 10 Ml Flush Syringe IV 10 ml BID MIMI Administration Sodium Chloride 10 ml 11/20/21 00:45 Sodium Chloride 0.9% 10 Ml Flush Syringe IV PRN PRN LINE FLUSH Nutrition/Malnutrition Assess - Dietary Evaluation Nutrition/Malnutrition Findings: Nutrition Notes Start: 11/20/21 14:2 2 Freq: Status: Active Protocol: Document 11/21/21 12:03 [facility] (Rec: 11/21/21 12:12 [facility] [id number]) Nutrition Notes Need for Assessment generated from: MD Order,beta tester,MST Initial or Follow up Assessment Current Diagnosis Acute Kidney Injury,Sepsis Other Pertinent Diagnosis Hypoglycemia, (R) great toe gangrene vs osteomyelitis Current Diet Cardiac/Consistent CHO + Glucerna BID Labs/Tests BG 155 Pertinent Medications Reviewed Height 5 ft 7 in Weight 63.8 kg [place] Body Weight (kg) 61.36 BMI 22.0 Weight Status Appropriate Subjective/Other Information RD consulted for poor oral intake; pt also screened for malnutrition risk. Pt reports decreased appetite for "a while". She says she ate the oatmeal and some of the egg omelet for breakfast this am. She drinks Glucerna at home. She says she has been diabetic "forever" and reports family hx of DM. She reports pain from toe infection. Burn Absent Trauma Absent Skin Integrity/Comment (R) great toe wound Minimum of two criteria No Energy Intake (non-severe) <75% Estimated Energy Requirement >7 days #1 Nutrition Diagnosis Increased nutrient needs ( specify in comment below) Comments: protein Etiology increased demands of healing As Evidenced by Signs and Symptoms pt with (R) great toe wound Is patient on ventilator? No Is Patient Ambulatory and/or Out of Bed No REE-([facility]-confined to bed) 1458.324 Kcal/Kg value to use for calculation 28 Approximate Energy Requirements Using 1786 kcal/Kg Calculation Used for Recommendations Kcal/kg Additional Notes Pro needs 1.25-1.5g/k-96g /day Fluid needs 1ml/kcal Nutrition Intervention Change Diet Order: Continue current diet order Add Supplement/Snack (indicate name/kcal Glucerna BID /protein ) Provides kCal: 440 Provides Protein (gm) 20 Goal #1 PO intake of meals plus ONS to meet atleast 75% energy and pro needs Goal #2 Wound healing Anticipated Discharge Needs: Continue ONS 1-2 times daily Follow-Up By: 11/24/21 Additional Comments F/U: intakes (meals/ONS)
[2021-11-24 07:49] LABS: Hematocrit 23.7 % (30.3-42.9); Hemoglobin 8.1 gm/dl (10.1-14.3); Mean Corpuscular HGB Conc 34 % (30-34); Mean Corpuscular Volume 104 fl (79-97); Platelet Count 129 K/mm3 (140-440); Red Blood Count 2.29 M/mm3 (3.65-5.03)
[2021-11-24] MEDS: amLODIPine 10 MG TAB PO SCH (09:01)
[2021-11-24] MEDS: CILOSTAZOL 100 MG TAB PO SCH ×2 (09:01→22:13)
[2021-11-24] MEDS: cefTRIAXone/NS 1 GM/50 ML 1 GM/50 ML BAG IV SCH (09:02)
[2021-11-24] MEDS: carvediloL 6.25 MG TAB PO SCH ×2 (09:02→22:13)
[2021-11-24] MEDS: INSULIN LISPRO 100 UNIT/ML SUB-Q SCH ×6 (09:09→22:28)
[2021-11-24] MEDS: MORPHINE 2 MG/1 ML INJ IV PRN ×2 (10:14→20:36)
[2021-11-24 11:20] LABS: Basophils % (Manual) 0 % (0.0-1.8); Eosinophils % (Manual) 0 % (0.0-4.3); Total Cells Counted 100
[2021-11-24 11:24] LABS: Anisocytosis 1+; Burr Cells Rare; Large Platelets Rare; Macrocytosis 1+; Ovalocytes Rare; Poikilocytosis Few
[2021-11-24 11:25] LABS: Platelet Estimate Consistent w Auto
--- NOTE | 2021-11-24 11:46 | Progress Note ---
Assessment and Plan Cultures: 11/19/2021 blood culture: GPC in 1 of 4 bottles 11/19/2021 urine culture: Mixed joe A/P: 66-year-old female with diabetes, hypertension, breast cancer, multiple myeloma, prior left BKA admitted to the hospital due to hypoglycemia. She was also noted to have a gangrenous appearing right toe: #Right great toe gangrene and acute osteomyelitis: Etiology diabetes and peripheral vascular disease. Underwent diagnostic angio by vascular, patient has two-vessel runoff to the right foot with a dominant dorsalis pedis artery which feeds the first digit ulceration. No revascularization plan for vascular as of now. #GPC bacteremia #Peripheral vascular disease: Prior left BKA. Vascular following. Underwent diagnostic angio by vascular, patient has two-vessel runoff to the right foot wi th a dominant dorsalis pedis artery which feeds the first digit ulceration. No revascularization plan for vascular as of now. #Leukopenia: Probably related to history of multiple myeloma, breast cancer. Patient states both are in remission, but oncologist is in [place]. Last chemo must have been around a year ago, does not remember the exact details. #Diabetes mellitus #Penicillin allergy, tolerating ceftriaxone without issues #DORCAS: Improved. Recs: Follow-up blood cultures Continue ceftriaxone, Flagyl, vancomycin for now f/u surgery consult, patient may require a toe amputation/debridement Analia Salcedo MD, FACP, NED [facility] O: [phone] F: [phone] C: [phone] Subjective Date of service: 11/24/21 Principal diagnosis: Toe gangrene Interval history: Complains of weakness, nausea. No fever. No rash. Tolerating abx. Objective - Exam Narrative Exam: Physical Exam: Constitutional: Alert, cooperative. No acute distress Head, Ears, Nose: Normocephalic, atraumatic. External ears, nose normal Eyes: Conjunctivae/corneas clear. No icterus. No ptosis. Neck: Supple, no meningeal signs Cardiovascular: S1, S2 + Respiratory: Good air entry, clear to auscultation bilaterally GI: Soft, non-tender; bowel sounds normal. No peritoneal signs Musculoskeletal: Right foot in dressing. Left BKA. Skin: No rash or abscess Hem/Lymphatic: No palpable cervical or supraclavicular nodes. No lymphangitis Psych: Mood ok. Affect normal Neurological: Awake, alert, oriented. No gross abnormality - Constitutional Vitals: Vital Signs Temp Pulse Resp BP Pulse Ox 98.1 F 76 16 129/59 98 11/24/21 04:26 11/24/21 04:26 11/24/21 04:26 11/24/21 04:26 11/24/21 10:00 Temperature -Last 24 Hours Temperature 98.1 F Temperature 98.4 F - Labs CBC & Chem 7: 11/24/21 05:23 11/24/21 05:23 Labs: Abnormal lab results 11/23/21 11/23/21 11/24/21 Range/Units 16:01 22:06 05:23 WBC 2.5 L (4.5-11.0) K/mm3 RBC 2.29 L (3.65-5.03) M/mm3 Hgb 8.1 L (10.1-14.3) gm/dl Hct 23.7 L (30.3-42.9) % MCV 104 H (79-97) fl MCH 35 H (28-32) pg Plt Count 129 L (140-440) K/mm3 Seg Neutrophils # Man 1.6 L (1.8-7.7) K/mm3 Lymphocytes # (Manual) 0.8 L (1.2-5.4) K/mm3 Potassium (3.6-5.0) mmol/L Glucose (65-100) mg/dL POC Glucose 220 H 159 H (70-105) mg/dL Calcium (8.4-10.2) mg/dL 11/24/21 11/24/21 11/24/21 Range/Units 05:23 07:21 11:22 WBC (4.5-11.0) K/mm3 RBC (3.65-5.03) M/mm3 Hgb (10.1-14.3) gm/dl Hct (30.3-42.9) % MCV (79-97) fl MCH (28-32) pg Plt Count (140-440) K/mm3 Seg Neutrophils # Man (1.8-7.7) K/mm3 Lymphocytes # (Manual) (1.2-5.4) K/mm3 Potassium 3.5 L (3.6-5.0) mmol/L Glucose 170 H (65-100) mg/dL POC Glucose 210 H 200 H (70-105) mg/dL Calcium 7.9 L (8.4-10.2) mg/dL
[2021-11-24] MEDS: MORPHINE 4 MG/1 ML INJ IV PRN (16:02)
--- NOTE | 2021-11-24 16:11 | Consultation ---
History of Present Illness Consult date: 11/24/21 Reason for consult: wound care Chief complaint: wound right great toe - History of present illness History of present illness: 66 yo F with hx of DM who presented to ER with low blood sugar. The patient is on insulin at home. Pt was noted to have a gangrenous appearing right great toe. Patient states toe has been this way for several weeks. She recently underwent left BKA for nonhealing wounds of the LLE at an outside facility about 6 months ago. She states this healed well. She has undergone MRI of the right foot which revealed osteomyelitis of the proximal and distal phalanx of right great toe. S he has undergone vascular evaluation and has 2 vessel runoff to the right foot. She denies n/v, f/c, cp , sob. Past History Past Medical History: diabetes, hypertension, other (breast cancer, multiple myeloma) Past Surgical History: Other (Left BKA) Social history: no significant social history Family history: no significant family history Medications and Allergies Allergies Allergy/AdvReac Type Severity Reaction Status Date / Time sulfamethoxazole Allergy Severe Unknown Verified 11/20/21 16:16 [From Bactrim] trimethoprim [From Bactrim] Allergy Severe Unknown Verified 11/20/21 16:16 cephalexin [From Keflex] Allergy Intermediate Rash Verified 11/20/21 16:20 penicillin G Allergy Intermediate Rash Verified 11/20/21 16:20 Home Medications Medication Instructions Recorded Confirmed Last Taken Type Lenalidomide [Revlimid] 10 mg PO QDAY 11/21/21 11/21/21 Unknown History Tamoxifen Citrate 20 mg PO DAILY 11/21/21 11/21/21 Unknown History Valacyclovir HCl [Valacyclovir] 500 mg BID 11/21/21 11/21/21 Unknown History amLODIPine [Norvasc] 5 mg PO DAILY 11/21/21 11/21/21 Unknown History carvediloL [Coreg] 6.25 mg PO BID 11/21/21 11/21/21 Unknown History hydrALAZINE [Apresoline TAB] 10 mg PO BID 11/21/21 11/21/21 Unknown History Active Meds: Active Medications Acetaminophen (Acetaminophen 325 Mg Tab) 650 mg PO Q4H PRN PRN Reason: Pain MILD(1-3)/Fever >100.5/BOLAND Last Admin: 11/20/21 18:47 Dose: 650 mg Amlodipine Besylate (Amlodipine 10 Mg Tab) 10 mg PO DAILY [facility] Last Admin: 11/24/21 09:01 Dose: 10 mg Carvedilol (Carvedilol 6.25 Mg Tab) 6.25 mg PO BID MIMI Last Admin: 11/24/21 09:02 Dose: 6.25 mg Cilostazol (Cilostazol 100 Mg Tab) 100 mg PO BID MIMI Last Admin: 11/24/21 09:01 Dose: 100 mg Dextrose (Dextrose 50% In Water (25gm) 50 Ml Syringe) 0 ml IV Q30MIN PRN; Protocol PRN Reason: Hypoglycemia Heparin Sodium (Porcine) (Heparin 5,000 Unit/1 Ml Vial) 5,000 unit SUB-Q Q8HR MIMI Last Admin: 11/24/21 14:28 Dose: 5,000 unit Hydralazine HCl (Hydralazine 25 Mg Tab) 50 mg PO TID MIMI Last Admin: 11/24/21 14:28 Dose: 50 mg Sodium Chloride (Nacl 0.9% 1000 Ml) 1,000 mls @ 75 mls/hr IV DIRECT MIMI Last Admin: 11/21/21 06:51 Dose: 125 mls/hr Vancomycin HCl (Vancomycin/Ns 1 Gm/250 Ml) 1 gm in 250 mls @ 250 mls/hr IV Q24H MIMI Last Admin: 11/24/21 00:58 Dose: 250 mls/hr Ceftriaxone Sodium (Rocephin/Ns 1 Gm/50 Ml) 1 gm in 50 mls @ 100 mls/hr IV Q24HR MIMI; Protocol Last Admin: 11/24/21 09:02 Dose: 100 mls/hr Metronidazole (Flagyl 500 Mg/100 Ml) 500 mg in 100 mls @ 100 mls/hr IV Q8HR MIMI; Protocol Last Admin: 11/24/21 15:42 Dose: 100 mls/hr Insulin Human Lispro (Insulin Lispro 100 Unit/Ml) 0 unit SUB-Q ACHS MIMI; Protocol Last Admin: 11/24/21 11:51 Dose: 3 unit Magnesium Hydroxide (Magnesium Hydroxide (Mom) Oral Liqd Udc) 30 ml PO Q4H PRN PRN Reason: Constipation Last Admin: 11/24/21 14:32 Dose: 30 ml Morphine Sulfate (Morphine 2 Mg/1 Ml Inj) 2 mg IV Q4H PRN PRN Reason: Pain, Moderate (4-6) Last Admin: 11/24/21 10:14 Dose: 2 mg Morphine Sulfate (Morphine 4 Mg/1 Ml Inj) 4 mg IV Q4H PRN PRN Reason: Pain , Severe (7-10) Last Admin: 11/24/21 16:02 Dose: 4 mg Ondansetron HCl (Ondansetron 4 Mg/2 Ml Inj) 4 mg IV Q8H PRN PRN Reason: Nausea And Vomiting Last Admin: 11/24/21 16:02 Dose: 4 mg Sodium Chloride (Sodium Chloride 0.9% 10 Ml Flush Syringe) 10 ml IV BID MIMI Last Admin: 11/24/21 09:15 Dose: 10 ml Sodium Chloride (Sodium Chloride 0.9% 10 Ml Flush Syringe) 10 ml IV PRN PRN PRN Reason: LINE FLUSH Review of Systems All systems: negative (10 pt ros performed negative except for that listed in HPI) Exam Vital Signs Temp Pulse Resp BP Pulse Ox 97.3 F L 75 18 145/98 100 11/19/21 20:26 11/19/21 20:26 11/19/21 20:26 11/19/21 20:26 11/19/21 20:26 Narrative exam: Gen: AAOx3. NAD ENT: no scleral icterus or conjuctival pallor CV: S1, S2+ Resp: even and unlabored Ext: L BKA. R foot dressing c/d/i. installers mechanical photos reviewed - gangrenous changes to the right great toe with seropurulent drainage noted. Results - Labs 11/24/21 05:23 11/24/21 05:23 Abnormal lab results 11/23/21 11/24/21 11/24/21 Range/Units 22:06 05:23 05:23 WBC 2.5 L (4.5-11.0) K/mm3 RBC 2.29 L (3.65-5.03) M/mm3 Hgb 8.1 L (10.1-14.3) gm/dl Hct 23.7 L (30.3-42.9) % MCV 104 H (79-97) fl MCH 35 H (28-32) pg Plt Count 129 L (140-440) K/mm3 Seg Neutrophils # Man 1.6 L (1.8-7.7) K/mm3 Lymphocytes # (Manual) 0.8 L (1.2-5.4) K/mm3 Potassium 3.5 L (3.6-5.0) mmol/L Glucose 170 H (65-100) mg/dL POC Glucose 159 H (70-105) mg/dL Calcium 7.9 L (8.4-10.2) mg/dL 11/24/21 11/24/21 Range/Units 07:21 11:22 WBC (4.5-11.0) K/mm3 RBC (3.65-5.03) M/mm3 Hgb (10.1-14.3) gm/dl Hct (30.3-42.9) % MCV (79-97) fl MCH (28-32) pg Plt Count (140-440) K/mm3 Seg Neutrophils # Man (1.8-7.7) K/mm3 Lymphocytes # (Manual) (1.2-5.4) K/mm3 Potassium (3.6-5.0) mmol/L Glucose (65-100) mg/dL POC Glucose 210 H 200 H (70-105) mg/dL Calcium (8.4-10.2) mg/dL Diabetes panel 11/24/21 Range/Units 05:23 Sodium 137 (137-145) mmol/L Potassium 3.5 L (3.6-5.0) mmol/L Chloride 104.4 (98-107) mmol/L Carbon Dioxide 24 (22-30) mmol/L BUN 12 (7-17) mg/dL Creatinine 1.0 (0.6-1.2) mg/dL Glucose 170 H (65-100) mg/dL Calcium 7.9 L (8.4-10.2) mg/dL Calcium panel 11/24/21 Range/Units 05:23 Calcium 7.9 L (8.4-10.2) mg/dL Pituitary panel 11/24/21 Range/Units 05:23 Sodium 137 (137-145) mmol/L Potassium 3.5 L (3.6-5.0) mmol/L Chloride 104.4 (98-107) mmol/L Carbon Dioxide 24 (22-30) mmol/L BUN 12 (7-17) mg/dL Creatinine 1.0 (0.6-1.2) mg/dL Glucose 170 H (65-100) mg/dL Calcium 7.9 L (8.4-10.2) mg/dL Adrenal panel 11/24/21 Range/Units 05:23 Sodium 137 (137-145) mmol/L Potassium 3.5 L (3.6-5.0) mmol/L Chloride 104.4 (98-107) mmol/L Carbon Dioxide 24 (22-30) mmol/L BUN 12 (7-17) mg/dL Creatinine 1.0 (0.6-1.2) mg/dL Glucose 170 H (65-100) mg/dL Calcium 7.9 L (8.4-10.2) mg/dL - Imaging Additional studies: XRAY R foot MRI R foot Assessment and Plan 66 yo F with 1. Gangrene of right great toe 2. Diabetes mellitus with right great toe wound 3. Osteomyelitis Plan: 1. Diabetic diet with supplements, NPO p MN tonight 2. gentle IVF 3. IV abx per ID 4. HbA1C 5. prn pain control 6. strict glucose control 7. Discussed surgical options with the patient. Due to extent of gangrene, I recommend right great toe amputation. She understands. All questions from patient and sisters at bedside answered 8. Will check with OR to determine next available date/time to add patient for surgery. Amputation will be performed by Dr. Malone - patient understands. Thank you, please call with questions. D/W Dr. Alarcon
[2021-11-24] MEDS: SODIUM CHLORIDE 0.9% 1000 ML 1,000 ML IV SCH (22:28)
[2021-11-25] MEDS: VANCOMYCIN/NS 1 GM/250 ML 1 GM/250 ML BAG IV SCH (02:58)
[2021-11-25] MEDS: metroNIDAZOLE/NS 500 MG/100 ML 500 MG/100 ML BAG IV SCH (06:03)
[2021-11-25] MEDS: HEPARIN 5,000 UNIT/1 ML VIAL SUB-Q SCH ×3 (06:09→23:00)
[2021-11-25] MEDS: MORPHINE 2 MG/1 ML INJ IV PRN ×2 (06:23→22:57)
[2021-11-25] MEDS: MORPHINE 4 MG/1 ML INJ IV PRN (08:55)
--- NOTE | 2021-11-25 09:29 | Progress Note ---
Assessment and Plan 66 yo F with 1. Gangrene of right great toe 2. Diabetes mellitus with right great toe wound - HbA1c 7.4 3. Osteomyelitis Plan: 1. NPO for procedure today 2. gentle IVF 3. IV abx per ID 5. prn pain control 6. strict glucose control 7. Plan for OR today/PM for amputation of right great toe with Dr. Malone. Consent obtained. 8. Foot drop boot ordered for right foot 9. PT consult 10. CM consult for outpt PT 11. Patient is scheduled to see Dr. Green and establish PCP care as outpatient Thank you, please call with questions. D/W Dr. Alarcon Subjective Date of service: 11/25/21 Narrative: Pt seen and examined. No overnight events or acute complaints. Patient states she has prosthesis for LLE however has not had PT with it yet so cannot walk on it yet. Objective Vital Signs - 12hr 11/24/21 11/24/21 11/25/21 22:00 22:13 04:26 Temperature 98.6 F Pulse Rate 76 81 Respiratory 16 Rate Blood Pressure 118/54 142/56 O2 Sat by Pulse 97 100 Oximetry - General physical appearance Narrative Exam: Gen: AAOx3. NAD ENT: no scleral icterus or conjuctival pallor CV: S1, S2+ Resp: even and unlabored Ext: L BKA. Evidence of right fifth toe amp. R great toe with dry gangrene of distal half of toe, ulcer present with moderate odor and scant drainage. Bounding DP pulse. Foot is warm. - Labs 11/24/21 05:23 11/24/21 05:23 Diabetes panel 11/25/21 Range/Units 04:49 Hemoglobin A1c 7.4 H (4-6) %
[2021-11-25] MEDS: cefTRIAXone/NS 1 GM/50 ML 1 GM/50 ML BAG IV SCH (09:35)
--- NOTE | 2021-11-25 09:57 | Progress Note ---
Assessment and Plan Assessment and plan: 66-year-old female with known history of diabetes mellitus and left below-knee amputation presenting to the emergency room today for major complaints of low blood glucose 20s to 30s on the field. Work-up in the emergency room: lab reveals hyperkalemia of 5.6, lactic acid initially was 4.4. Chest x-ray reveals no acute abnormality. Patient had a gangrenous looking toe on the right foot which was x-rayed revealing overlying subcutaneous emphysema with findings concerning for osteomyelitis. Patient has been started on empiric IV antibiotics. -- Hypoglycemia: Present on admission, now resolved Accu-Cheks sliding scale coverage ADA diet Insulin as needed, check HbA1c Diabetic education, diabetic diet nutrition education Home health nurse upon discharge for disease monitoring -- Right great to gangrene with osteomyelitis. Surgery, ID and vascular following, Follow cultures Continue current antibiotics Rocephin, Flagyl and Vanco Surgery planning amputation of the right great toe Awaiting OR scheduling[discussed with surgeon Dr. Collins] -- Sepsis due to osteomyelitis: of the right great toe; Continue Rocephin, Flagyl and vancomycin follow cultures ID following -- hypoglycemia; Closely monitor electrolytes and replenish as needed --Acute kidney injury; vasomotor nephropathy Resolved, monitor renal function avoid nephrotoxins -- History of hypertension; well-controlled Continue current management -- History of left AKA ; Supportive care --DVT prophylaxis; Subcu heparin Closely monitor the patient and adjust management as needed Plan of care reviewed with the patient and her nurse Diaper Machine Tender recommendations noted and appreciated Surgeon Dr. Collins planning amputation of the right great toe Awaiting OR scheduling DC planning per case management when medically stable Daily Hospital course: 11/20: cont empiric abx, ID consulted, follow cx, consult vascular, follow BMP 11/21. ; Consulted vascular for recommendation, plan for arteriogram on Tuesday, continue empiric antibiotics, ID following 11/22; She Vascular Doppler study indicated for monophasic blood flow. Plan for angiogram tomorrow. Continue to follow clinically with empiric antibiotics. 11/23: s/p diagnostic angiogram of the right lower extremity. The patient has two-vessel runoff to the right foot with a dominant dorsalis pedis artery. Vascular Recommended general surgery evaluation. cont empiric abx. wound care 11/24; follow electrolytes, continue current antibiotics, follow consultants recommendations 11/25; patient is scheduled for right great toe amputation today, patient is n.p.o. status, surgery following History Interval history: I have seen and examined the patient at the bedside Patient's chart and medications reviewed Patient is scheduled for right great toe amputation today N.p.o. status Hospitalist Physical - Constitutional Vitals: Temp Pulse Resp BP Pulse Ox 98.6 F 81 16 142/56 98 11/25/21 04:26 11/25/21 04:26 11/25/21 04:26 11/25/21 04:11/25/21 09:48 General appearance: Present: mild distress, well-nourished - EENT Eyes: Present: PERRL, EOM intact - Neck Neck: Present: supple, normal ROM - Respiratory Respiratory effort: normal Respiratory: bilateral: diminished, negative: rales, rhonchi, wheezing - Cardiovascular Rhythm: regular Heart Sounds: Present: S1 & S2 - Extremities Extremities: abnormal (Right great toe gangrene) - Abdominal General gastrointestinal: soft, non-tender, non-distended, normal bowel sounds - Integumentary Integumentary: Present: clear, warm - Psychiatric Psychiatric: appropriate mood/affect, cooperative - Neurologic Neurologic: CNII-XII intact, moves all extremities Results - Labs CBC & Chem 7: 11/24/21 05:23 11/24/21 05:23 Labs: Laboratory Last Values WBC 2.5 K/mm3 (4.5-11.0) L 11/24/21 05:23 RBC 2.29 M/mm3 (3.65-5.03) L 11/24/21 05:23 Hgb 8.1 gm/dl (10.1-14.3) L 11/24/21 05:23 Hct 23.7 % (30.3-42.9) L 11/24/21 05:23 MCV 104 fl (79-97) H 11/24/21 05:23 MCH 35 pg (28-32) H 11/24/21 05:23 MCHC 34 % (30-34) 11/24/21 05:23 RDW 15.0 % (13.2-15.2) 11/24/21 05:23 Plt Count 129 K/mm3 (140-440) L 11/24/21 05:23 Add Manual Diff Complete 11/24/21 05:23 Total Counted 100 11/24/21 05:23 Seg Neuts % (Manual) 63.0 % (40.0-70.0) 11/24/21 05:23 Band Neutrophils % 0 % 11/24/21 05:23 Lymphocytes % (Manual) 30.0 % (13.4-35.0) 11/24/21 05:23 Reactive Lymphs % (Man) 0 % 11/24/21 05:23 Monocytes % (Manual) 7.0 % (0.0-7.3) 11/24/21 05:23 Eosinophils % (Manual) 0 % (0.0-4.3) 11/24/21 05:23 Basophils % (Manual) 0 % (0.0-1.8) 11/24/21 05:23 Metamyelocytes % 0 % 11/24/21 05:23 Myelocytes % 0 % 11/24/21 05:23 Promyelocytes % 0 % 11/24/21 05:23 Blast Cells % 0 % 11/24/21 05:23 Nucleated RBC % Not Reportable 11/24/21 05:23 Seg Neutrophils # Man 1.6 K/mm3 (1.8-7.7) L 11/24/21 05:23 Band Neutrophils # 0.0 K/mm3 11/24/21 05:23 Lymphocytes # (Manual) 0.8 K/mm3 (1.2-5.4) L 11/24/21 05:23 Abs React Lymphs (Man) 0.0 K/mm3 11/24/21 05:23 Monocytes # (Manual) 0.2 K/mm3 (0.0-0.8) 11/24/21 05:23 Eosinophils # (Manual) 0.0 K/mm3 (0.0-0.4) 11/24/21 05:23 Basophils # (Manual) 0.0 K/mm3 (0.0-0.1) 11/24/21 05:23 Metamyelocytes # 0.0 K/mm3 11/24/21 05:23 Myelocytes # 0.0 K/mm3 11/24/21 05:23 Promyelocytes # 0.0 K/mm3 11/24/21 05:23 Blast Cells # 0.0 K/mm3 11/24/21 05:23 WBC Morphology Not Reportable 11/24/21 05:23 Hypersegmented Neuts Not Reportable 11/24/21 05:23 Hyposegmented Neuts Not Reportable 11/24/21 05:23 Hypogranular Neuts Not Reportable 11/24/21 05:23 Smudge Cells Not Reportable 11/24/21 05:23 Toxic Granulation Not Reportable 11/24/21 05:23 Toxic Vacuolation Not Reportable 11/24/21 05:23 Dohle Bodies Not Reportable 11/24/21 05:23 Pelger-Huet Anomaly Not Reportable 11/24/21 05:23 Estrada Rods Not Reportable 11/24/21 05:23 Platelet Estimate Consistent w auto 11/24/21 05:23 Clumped Platelets Not Reportable 11/24/21 05:23 Plt Clumps, EDTA Not Reportable 11/24/21 05:23 Large Platelets Rare 11/24/21 05:23 Giant Platelets Not Reportable 11/24/21 05:23 Platelet Satelliting Not Reportable 11/24/21 05:23 Plt Morphology Comment Not Reportable 11/24/21 05:23 RBC Morphology Not Reportable 11/24/21 05:23 Dimorphic RBCs Not Reportable 11/24/21 05:23 Polychromasia Not Reportable 11/24/21 05:23 Hypochromasia Not Reportable 11/24/21 05:23 Poikilocytosis Few 11/24/21 05:23 Anisocytosis 1+ 11/24/21 05:23 Microcytosis Not Reportable 11/24/21 05:23 Macrocytosis 1+ 11/24/21 05:23 Spherocytes Not Reportable 11/24/21 05:23 Pappenheimer Bodies Not Reportable 11/24/21 05:23 Sickle Cells Not Reportable 11/24/21 05:23 Target Cells Not Reportable 11/24/21 05:23 Tear Drop Cells Not Reportable 11/24/21 05:23 Ovalocytes Rare 11/24/21 05:23 Helmet Cells Not Reportable 11/24/21 05:23 [place] Bodies Not Reportable 11/24/21 05:23 [place] Rings Not Reportable 11/24/21 05:23 Dariel Cells Rare 11/24/21 05:23 Bite Cells Not Reportable 11/24/21 05:23 Crenated Cell Not Reportable 11/24/21 05:23 Elliptocytes Not Reportable 11/24/21 05:23 Acanthocytes (Spur) Rare 11/24/21 05:23 Rouleaux Not Reportable 11/24/21 05:23 Hemoglobin C Crystals Not Reportable 11/24/21 05:23 Schistocytes Not Reportable 11/24/21 05:23 Malaria parasites Not Reportable 11/24/21 05:23 Hany Bodies Not Reportable 11/24/21 05:23 Hem Pathologist Commnt No 11/24/21 05:23 PT 12.9 Sec. (12.2-14.9) 11/23/21 04:27 INR 0.88 (0.87-1.13) 11/23/21 04:27 Sodium 137 mmol/L (137-145) 11/24/21 05:23 Potassium 3.5 mmol/L (3.6-5.0) L 11/24/21 05:23 Chloride 104.4 mmol/L (98-107) 11/24/21 05:23 Carbon Dioxide 24 mmol/L (22-30) 11/24/21 05:23 Anion Gap 12 mmol/L 11/24/21 05:23 BUN 12 mg/dL (7-17) 11/24/21 05:23 Creatinine 1.0 mg/dL (0.6-1.2) 11/24/21 05:23 Estimated GFR > 60 ml/min 11/24/21 05:23 BUN/Creatinine Ratio 12 % 11/24/21 05:23 Glucose 170 mg/dL (65-100) H 11/24/21 05:23 POC Glucose 158 mg/dL (70-105) H 11/25/21 08:14 Hemoglobin A1c 7.4 % (4-6) H 11/25/21 04:49 Lactic Acid 1.90 mmol/L (0.7-2.0) 11/20/21 00:32 Calcium 7.9 mg/dL (8.4-10.2) L 11/24/21 05:23 Total Bilirubin 0.20 mg/dL (0.1-1.2) 11/19/21 21:44 AST 12 units/L (5-40) 11/19/21 21:44 ALT 8 units/L (7-56) 11/19/21 21:44 Alkaline Phosphatase 54 units/L (35-129) 11/19/21 21:44 Total Protein 7.4 g/dL (6.3-8.2) 11/19/21 21:44 Albumin 3.4 g/dL (3.9-5) L 11/19/21 21:44 Albumin/Globulin Ratio 0.9 % 11/19/21 21:44 Urine Color Yellow (Yellow) 11/19/21 Unknown Urine Turbidity Clear (Clear) 11/19/21 Unknown Urine pH 6.0 (5.0-7.0) 11/19/21 Unknown Ur Specific [place] 1.020 (1.003-1.030) 11/19/21 Unknown Urine Protein 30 mg/dl mg/dL (Negative) 11/19/21 Unknown Urine Glucose (UA) 1000 mg/dL (Negative) 11/19/21 Unknown Urine Ketones Negative mg/dL (Negative) 11/19/21 Unknown Urine Blood Negative (Negative) 11/19/21 Unknown Urine Nitrite Negative (Negative) 11/19/21 Unknown Ur Reducing Substances Not Reportable 11/19/21 Unknown Urine Bilirubin Negative (Negative) 11/19/21 Unknown Urine Ictotest Not Reportable 11/19/21 Unknown Urine Urobilinogen 0.0 mg/dL (<2.0) 11/19/21 Unknown Ur Leukocyte Esterase Negative (Negative) 11/19/21 Unknown Urine WBC (Auto) 7.0 /HPF (0.0-6.0) H 11/19/21 Unknown Urine RBC (Auto) 2.0 /HPF (0.0-6.0) 11/19/21 Unknown U Epithel Cells (Auto) 8.0 /HPF (0-13.0) 11/19/21 Unknown Urine Bacteria (Auto) 3+ /HPF (Negative) 11/19/21 Unknown Urine Mucus Few /HPF 11/19/21 Unknown Nasal Screen MRSA (PCR) Negative (Negative) 11/21/21 Unknown Vancomycin Trough 12.0 ug/mL (5.0-20.0) 11/23/21 00:20 Microbiology: Microbiology 11/19/21 21:44 Peripheral/Venous Blood Culture - Final NO GROWTH AFTER 5 DAYS 11/19/21 21:44 Peripheral/Venous Blood Culture - Preliminary Coag Negative Staphylococcus [place]/IV: Voiding Method External Female Catheter Active Medications - Current Medications Current Medications: Generic Name Dose Route Start Last Admin Trade Name Freq PRN Reason Stop Dose Admin Acetaminophen 650 mg 11/20/21 00:45 11/20/21 18:47 Acetaminophen 325 Mg Tab PO 650 mg Q4H PRN Administration Pain MILD(1-3)/Fever >100.5/BOLAND Amlodipine Besylate 10 mg 11/22/21 10:48 11/24/21 09:01 Amlodipine 10 Mg Tab PO 10 mg DAILY MIMI Administration Carvedilol 6.25 mg 11/21/21 22:00 11/24/21 22:13 Carvedilol 6.25 Mg Tab PO 6.25 mg BID MIMI Administration Cilostazol 100 mg 11/23/21 15:00 11/24/21 22:13 Cilostazol 100 Mg Tab PO 100 mg BID MIMI Administration Dextrose 0 ml 11/20/21 00:45 Dextrose 50% In Water (25gm) 50 Ml Syringe IV Q30MIN PRN Hypoglycemia Protocol Heparin Sodium (Porcine) 5,000 unit 11/20/21 06:00 11/25/21 06:09 Heparin 5,000 Unit/1 Ml Vial SUB-Q Not Given Q8HR MIMI Hydralazine HCl 50 mg 11/22/21 10:48 11/24/21 20:32 Hydralazine 25 Mg Tab PO 50 mg TID MIMI Administration Sodium Chloride 1,000 mls @ 75 mls/hr 11/20/21 00:45 11/24/21 22:28 Nacl 0.9% 1000 Ml IV 125 mls/hr DIRECT MIMI Administration Vancomycin HCl 1 gm in 250 mls @ 250 mls/hr 11/21/21 00:00 11/25/21 02:58 Vancomycin/Ns 1 Gm/250 Ml IV 250 mls/hr Q24H MIMI Administration Ceftriaxone Sodium 1 gm in 50 mls @ 100 mls/hr 11/20/21 12:00 11/25/21 09:35 Rocephin/Ns 1 Gm/50 Ml IV 100 mls/hr Q24HR MIMI Administration Protocol Metronidazole 500 mg in 100 mls @ 100 mls/hr 11/23/21 12:30 11/25/21 06:03 Flagyl 500 Mg/100 Ml IV 100 mls/hr Q8HR MIMI Administration Protocol Insulin Human Lispro 0 unit 11/20/21 18:00 11/24/21 22:28 Insulin Lispro 100 Unit/Ml SUB-Q 2 unit ACHS MIMI Administration Protocol Magnesium Hydroxide 30 ml 11/20/21 00:45 11/24/21 14:32 Magnesium Hydroxide (Mom) Oral Liqd Udc PO 30 ml Q4H PRN Administration Constipation Morphine Sulfate 2 mg 11/20/21 00:45 11/25/21 06:23 Morphine 2 Mg/1 Ml Inj IV 2 mg Q4H PRN Administration Pain, Moderate (4-6) Morphine Sulfate 4 mg 11/20/21 00:45 11/25/21 08:55 Morphine 4 Mg/1 Ml Inj IV 4 mg Q4H PRN Administration Pain , Severe (7-10) Ondansetron HCl 4 mg 11/20/21 00:45 11/24/21 16:02 Ondansetron 4 Mg/2 Ml Inj IV 4 mg Q8H PRN Administration Nausea And Vomiting Sodium Chloride 10 ml 11/20/21 10:00 11/24/21 22:14 Sodium Chloride 0.9% 10 Ml Flush Syringe IV 10 ml BID MIMI Administration Sodium Chloride 10 ml 11/20/21 00:45 Sodium Chloride 0.9% 10 Ml Flush Syringe IV PRN PRN LINE FLUSH Nutrition/Malnutrition Assess - Dietary Evaluation Nutrition/Malnutrition Findings: Nutrition Notes Start: 11/20/21 14:22 Freq: Status: Active Protocol: Document 11/24/21 14:35 LIBBY (Rec: 11/24/21 15:10 LIBBY [email or web address]) Nutrition Notes Initial or Follow up Brief Note Current Diagnosis Acute Kidney Injury,Diabetes, Sepsis,Hypertension Other Pertinent Diagnosis R-Great Toe Gangrene/ Osteomyelitis, PVD, Bacteremia , Hx L-BKA. Current Diet Cardiac/Consistent Carbohydrates Diet + D Suppl ( from B 11/24). 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 No body weight change reported in 3 days. Weight Status Appropriate Subjective/Other Information RD consult for routine F/U on dietary advancement. Pt's PO intake of meals has been Fair (50%), according to ADL notes. Pt is on Room Air, O2 saturation @ 98%, according to Physical Assessment History notes. Procedure on 11/23: Angyiography with Selection of R-LE EIA, INTERNATIONAL MANAGER, and SFA, well tolerated, according to Operarive Report notes. Percent of energy/protein needs met: Prescribed Cardiac/Consistent Carbohydrates Diet provides for energy/protein needs (1, 977 Kcal/86 g) during LOS; additionally, Dietary Supplements will compensate for possible poor or insufficient PO intake of meals and support wound healing processes with 660 Kcal and 30 g of protein. #2 Nutrition Diagnosis Inadequate protein-energy intake Etiology Possible sepsis/bacteremia. As Evidenced by Signs and Symptoms Pt's PO intake of meals has been Fair (50%), according to ADL notes. #1 Nutrition Diagnosis Increased nutrient needs ( specify in comment below) Comments: Protein to support wound healing processes. Diagnosis Progress(for reassessment Continues documentation) Is patient on ventilator? No Is Patient Ambulatory and/or Out of Bed No REE-(Brigantine-St. Jeor-confined to bed) 1458.324 Kcal/Kg value to use for calculation 28 Approximate Energy Requirements Using 1786 kcal/Kg Calculation Used for Recommendations Kcal/kg Additional Notes Protein: 1.25-1.5 g/Kg ABW; 80 -96 g/day. Fluids: 1 ml/Kcal, or as per MD. Nutrition Intervention Change Diet Order: Resume Cardiac/Consistent Carbohydrates Diet. Add Supplement/Snack (indicate name/kcal Resume Glucerna; TID. /protein ) Provides kCal: 660 Provides Protein (gm) 30 Goal #1 Compensate, through dietary supplementation, for possible poor or insufficient PO intake of meals during LOS. Goal #2 Support, through dietary supplementation, wound healing processes during LOS. Goal #3 Adjust the dietary intervention to better serve Pt's needs and clinical conditions during LOS. Follow-Up By: 12/01/21 Additional Comments Continue monitoring food tolerance, %PO intake of meals , and BM.
[2021-11-25] MEDS: INSULIN LISPRO 100 UNIT/ML SUB-Q SCH ×4 (10:01→23:05)
--- NOTE | 2021-11-25 10:46 | Progress Note ---
Assessment and Plan Cultures: 11/19/2021 blood culture: CoNS in 1 of 4 bottles 11/19/2021 urine culture: Mixed joe A/P: 66-year-old female with diabetes, hypertension, breast cancer, multiple myeloma, prior left BKA admitted to the hospital due to hypoglycemia. She was also noted to have a gangrenous appearing right toe: #Right great toe gangrene and acute osteomyelitis: Etiology diabetes and peripheral vascular disease. Underwent diagnostic angio by vascular, patient has two-vessel runoff to the right foot with a dominant dorsalis pedis artery which feeds the first digit ulceration. No revascularization plan for vascular as of now. #CoNS bacteremia: CoNS in 1 of 4 bottles, likely contaminant #Peripheral vascular disease: Prior left BKA. Vascular following. Underwent diagnostic angio by vascular, patient has two-vessel runoff to the right foot with a dominant dorsalis pedis artery which feeds the first digit ulceration. No revascularization plan for vascular as of now. #Leukopenia: Probably related to history of multiple myeloma, breast cancer. Patient states both are in remission, but oncologist is in [place]. Last chemo must have been around a year ago, does not remember the exact details. #Diabetes mellitus #Penicillin allergy, tolerating ceftriaxone without issues #DORCAS: Improved. Recs: -Continue Ceftriaxone, vancomycin for now -Flagyl discontinued -awaiting toe amputation Analia Salcedo MD, FACP, NED [facility] ([facility]) O: [phone] F: [phone] C: [phone] Subjective Date of service: 11/25/21 Principal diagnosis: Toe gangrene Interval history: Denies fever. No rash. Tolerating abx. Planned for toe amputation today. Objective - Exam Narrative Exam: Physical Exam: Constitutional: Alert, cooperative. No acute distress Head, Ears, Nose: Normocephalic, atraumatic. External ears, nose normal Eyes: Conjunctivae/corneas clear. No icterus. No ptosis. Neck: Supple, no meningeal signs Cardiovascular: S1, S2 + Respiratory: Good air entry, clear to auscultation bilaterally GI: Soft, non-tender; bowel sounds normal. No peritoneal signs Musculoskeletal: Right great toe with dry gangrene. Left BKA. Skin: No rash or abscess Hem/Lymphatic: No palpable cervical or supraclavicular nodes. No lymphangitis Psych: Mood ok. Affect normal Neurological: Awake, alert, oriented. No gross abnormality - Constitutional Vitals: Vital Signs Temp Pulse Resp BP Pulse Ox 98.6 F 81 16 142/56 98 11/25/21 04:26 11/25/21 04:26 11/25/21 04:26 11/25/21 04:26 11/25/21 09:48 Temperature -Last 24 Hours Temperature 98.6 F Temperature 98.5 F Temperature 98.9 F Temperature 98.8 F Temperature 98.0 F - Labs CBC & Chem 7: 11/24/21 05:23 11/24/21 05:23 Labs: Abnormal lab results 11/24/21 11/24/21 11/24/21 Range/Units 05:23 11:22 16:13 Seg Neutrophils # Man 1.6 L (1.8-7.7) K/mm3 Lymphocytes # (Manual) 0.8 L (1.2-5.4) K/mm3 POC Glucose 200 H 151 H (70-105) mg/dL Hemoglobin A1c (4-6) % 11/24/21 11/25/21 11/25/21 Range/Units 21:10 04:49 08:14 Seg Neutrophils # Man (1.8-7.7) K/mm3 Lymphocytes # (Manual) (1.2-5.4) K/mm3 POC Glucose 177 H 158 H (70-105) mg/dL Hemoglobin A1c 7.4 H (4-6) %
--- NOTE | 2021-11-25 12:18 | Anesthesia Consultation ---
Anesthesia Consult and Med Hx Date of service: 11/25/21 - Airway Anesthetic Teeth Evaluation: Poor (some broken teeth in the back) ROM Head & Neck: Adequate Mental/Hyoid Distance: Adequate Mallampati Class: Class II Intubation Access Assessment: Probably Good - Pre-Operative Health Status ASA Pre-Surgery Classification: ASA3 Proposed Anesthetic Plan: General - Pulmonary Hx Smoking: Yes (current smoker) - Cardiovascular System Hx Hypertension: Yes Hx Peripheral Vascular Disease: Yes (s/p left BKA, right toe ulcer) - Central Nervous System Hx Neuromuscular Disorder: No (multiple myeloma) - Endocrine Hx Renal Disease: Yes (CKD) Hx Insulin Dependent Diabetes: Yes - Other Systems Hx Cancer: Yes (left breast CA, s/p left mastectomy, chemo, radiation (2020))
--- NOTE | 2021-11-25 12:19 | Anesthesia Day of Surgery ---
Anesthesia Day of Surgery - Day of Surgery Patient Examined: Yes Patient H&P Reviewed: Yes Patient is NPO: Yes
--- NOTE | 2021-11-25 12:19 | Anesthesia Day of Surgery ---
Anesthesia Day of Surgery - Day of Surgery Patient Examined: Yes Patient H&P Reviewed: Yes Patient is NPO: Yes
[2021-11-25] MEDS ORDERED: LACTATED RINGERS 1,000 ML IV SCH (13:30)
[2021-11-25] MEDS ORDERED: LACTATED RINGERS 1,000 ML ONE (13:57)
[2021-11-25] MEDS ORDERED: LIDOCAINE MPF (2%) 20 MG/1 ML VIAL 5 ML ONE (14:19)
[2021-11-25] MEDS ORDERED: HYDROmorphone 1 MG/1 ML INJ ONE (14:21)
[2021-11-25] MEDS ORDERED: propofoL 200 MG/20 ML VIAL IV ONE (14:21)
[2021-11-25 15:05] LABS: Vitamin D, 25-OH, D2 <4 ng/mL
[2021-11-25] MEDS ORDERED: BUPIVACAINE/PF (0.5%) 5 MG/1 ML 30 ML VIAL INFILTRATI ONE ×2 (15:11→15:29)
[2021-11-25] MEDS ORDERED: LIDOCAINE (1%) 10 MG/1 ML VIAL 20 ML MDV ONE (15:11)
[2021-11-25] MEDS ORDERED: LIDOCAINE (1%) 10 MG/1 ML VIAL 20 ML MDV INFILTRATI ONE (15:28)
[2021-11-25] MEDS ORDERED: SODIUM CHLORIDE 0.9% IRR 1,000 ML BOTTLE IR ONE (15:29)
[2021-11-25] MEDS ORDERED: ONDANSETRON 4 MG/2 ML INJ ONE (15:50)
--- NOTE | 2021-11-25 16:13 | Operative Report ---
Operative Report Operative Report: Date of procedure: 11/25/2021 Preop diagnosis: Right foot first toe osteomyelitis and soft tissue infection wi th gangrene Postop diagnosis: Same Procedure: Amputation of first toe of right foot Surgeon: Dr. Malone Anesthesia: LMA and ankle nerve block Specimen: Right first toe Estimated blood loss: Minimal Findings: Patient is taken to the OR where under LMA anesthesia timeouts completed consents on the chart. The right foot is prepped with DuraPrep and draped in a sterile fashion: 1% lidocaine half percent Marcaine mixed 50-50 is used to do a ankle nerve block l nerve block. A teardrop shaped incision is used to expose the joint space between the distal phalanx and the metatarsal. The distal toe amputation is completed through the joint space. Periosteal elevator is used to push the soft tissue back on the distal part of the metatarsal head. Loose approximation of the soft tissues done with a 2-0 Vicryl. The skin is loosely closed with 3-0 nylon and 4-0 nylon sutures are used. Patient tolerated the procedure well. A sterile dressing is placed over this.
[2021-11-25] MEDS ORDERED: HYDROmorphone 0.5 MG/0.5 ML INJ ONE (16:35)
--- NOTE | 2021-11-25 16:45 | Post Anesthesia Evaluation ---
- Post Anesthesia Evaluation Patient Participated: Yes Airway Patent: Yes Stable Respiratory Function: Yes Nausea/Vomiting: No Temp > 96.8F: Yes Pain Manageable: Yes Adequeate Hydration: Yes Anesthesia Complications: No Block Receding Appropriately: Not Applicable Patient on Ventilator: No
[2021-11-25] MEDS ORDERED: hydrALAZINE 20 MG/1 ML INJ IV PRN (16:53)
[2021-11-25] MEDS ORDERED: hydrALAZINE 20 MG/1 ML INJ ONE (16:56)
[2021-11-25] MEDS ORDERED: ONDANSETRON 4 MG/2 ML INJ IV PRN (17:14)
[2021-11-25] MEDS ORDERED: HYDROmorphone 0.5 MG/0.5 ML INJ IV PRN ×2 (17:14)
[2021-11-25] MEDS: hydrALAZINE 25 MG TAB PO SCH ×2 (18:08→22:57)
[2021-11-25] MEDS: amLODIPine 10 MG TAB PO SCH (18:08)
[2021-11-25] MEDS: CILOSTAZOL 100 MG TAB PO SCH ×2 (18:09→22:44)
[2021-11-25] MEDS: carvediloL 6.25 MG TAB PO SCH ×2 (18:09→22:44)
[2021-11-26] MEDS: VANCOMYCIN/NS 1 GM/250 ML 1 GM/250 ML BAG IV SCH (01:48)
[2021-11-26] MEDS: INSULIN LISPRO 100 UNIT/ML SUB-Q SCH ×5 (01:48→22:32)
[2021-11-26] MEDS: MORPHINE 4 MG/1 ML INJ IV PRN ×2 (01:55→06:18)
[2021-11-26] MEDS: HEPARIN 5,000 UNIT/1 ML VIAL SUB-Q SCH ×3 (06:29→22:31)
--- NOTE | 2021-11-26 09:22 | Progress Note ---
Assessment and Plan Assessment and plan: 66-year-old female with known history of diabetes mellitus and left below-knee amputation presenting to the emergency room today for major complaints of low blood glucose 20s to 30s on the field. Work-up in the emergency room: lab reveals hyperkalemia of 5.6, lactic acid initially was 4.4. Chest x-ray reveals no acute abnormality. Patient had a gangrenous looking toe on the right foot which was x-rayed revealing overlying subcutaneous emphysema with findings concerning for osteomyelitis. Patient has been started on empiric IV antibiotics. -- Hypoglycemia: Present on admission, now resolved Accu-Cheks sliding scale coverage ADA diet Insulin as needed, check HbA1c Diabetic education, diabetic diet nutrition education Home health nurse upon discharge for disease monitoring -- Right great to gangrene with osteomyelitis. Surgery, ID and vascular following, Follow cultures Continue current antibiotics Rocephin, Flagyl and Vanco Surgery planning amputation of the right great toe Awaiting OR scheduling[discussed with surgeon Dr. Collins] -- Sepsis due to osteomyelitis: of the right great toe; Continue Rocephin, Flagyl and vancomycin follow cultures ID following -- hypoglycemia; Closely monitor electrolytes and replenish as needed --Acute kidney injury; vasomotor nephropathy Resolved, monitor renal function avoid nephrotoxins -- History of hypertension; well-controlled Continue current management -- History of left AKA ; Supportive care --DVT prophylaxis; Subcu heparin Closely monitor the patient and adjust management as needed Plan of care reviewed with the patient and her nurse Assistant Corporate Controller recommendations noted and appreciated Surgeon Dr. Collins planning amputation of the right great toe Awaiting OR scheduling DC planning per case management when medically stable Daily Hospital course: 11/20: cont empiric abx, ID consulted, follow cx, consult vascular, follow BMP 11/21. ; Consulted vascular for recommendation, plan for arteriogram on Tuesday, continue empiric antibiotics, ID following 11/22; She Vascular Doppler study indicated for monophasic blood flow. Plan for angiogram tomorrow. Continue to follow clinically with empiric antibiotics. 11/23: s/p diagnostic angiogram of the right lower extremity. The patient has two-vessel runoff to the right foot with a dominant dorsalis pedis artery. Vascular Recommended general surgery evaluation. cont empiric abx. wound care 11/24; follow electrolytes, continue current antibiotics, follow consultants recommendations 11/25; patient is scheduled for right great toe amputation today, patient is n.p.o. status, surgery following History Interval history: Patient had right great toe amputation yesterday Tolerated the procedure well Hospitalist Physical - Constitutional Vitals: Temp Pulse Resp BP Pulse Ox 98.5 F 74 18 119/51 98 11/26/21 06:12 11/26/21 06:12 11/26/21 06:12 11/26/21 06:12 11/26/21 08:30 General appearance: Present: mild distress, well-nourished Results - Labs CBC & Chem 7: 11/24/21 05:23 11/24/21 05:23 Labs: Laboratory Last Values WBC 2.5 K/mm3 (4.5-11.0) L 11/24/21 05:23 RBC 2.29 M/mm3 (3.65-5.03) L 11/24/21 05:23 Hgb 8.1 gm/dl (10.1-14.3) L 11/24/21 05:23 Hct 23.7 % (30.3-42.9) L 11/24/21 05:23 MCV 104 fl (79-97) H 11/24/21 05:23 MCH 35 pg (28-32) H 11/24/21 05:23 MCHC 34 % (30-34) 11/24/21 05:23 RDW 15.0 % (13.2-15.2) 11/24/21 05:23 Plt Count 129 K/mm3 (140-440) L 11/24/21 05:23 Add Manual Diff Complete 11/24/21 05:23 Total Counted 100 11/24/21 05:23 Seg Neuts % (Manual) 63.0 % (40.0-70.0) 11/24/21 05:23 Band Neutrophils % 0 % 11/24/21 05:23 Lymphocytes % (Manual) 30.0 % (13.4-35.0) 11/24/21 05:23 Reactive Lymphs % (Man) 0 % 11/24/21 05:23 Monocytes % (Manual) 7.0 % (0.0-7.3) 11/24/21 05:23 Eosinophils % (Manual) 0 % (0.0-4.3) 11/24/21 05:23 Basophils % (Manual) 0 % (0.0-1.8) 11/24/21 05:23 Metamyelocytes % 0 % 11/24/21 05:23 Myelocytes % 0 % 11/24/21 05:23 Promyelocytes % 0 % 11/24/21 05:23 Blast Cells % 0 % 11/24/21 05:23 Nucleated RBC % Not Reportable 11/24/21 05:23 Seg Neutrophils # Man 1.6 K/mm3 (1.8-7.7) L 11/24/21 05:23 Band Neutrophils # 0.0 K/mm3 11/24/21 05:23 Lymphocytes # (Manual) 0.8 K/mm3 (1.2-5.4) L 11/24/21 05:23 Abs React Lymphs (Man) 0.0 K/mm3 11/24/21 05:23 Monocytes # (Manual) 0.2 K/mm3 (0.0-0.8) 11/24/21 05:23 Eosinophils # (Manual) 0.0 K/mm3 (0.0-0.4) 11/24/21 05:23 Basophils # (Manual) 0.0 K/mm3 (0.0-0.1) 11/24/21 05:23 Metamyelocytes # 0.0 K/mm3 11/24/21 05:23 Myelocytes # 0.0 K/mm3 11/24/21 05:23 Promyelocytes # 0.0 K/mm3 11/24/21 05:23 Blast Cells # 0.0 K/mm3 11/24/21 05:23 WBC Morphology Not Reportable 11/24/21 05:23 Hypersegmented Neuts Not Reportable 11/24/21 05:23 Hyposegmented Neuts Not Reportable 11/24/21 05:23 Hypogranular Neuts Not Reportable 11/24/21 05:23 Smudge Cells Not Reportable 11/24/21 05:23 Toxic Granulation Not Reportable 11/24/21 05:23 Toxic Vacuolation Not Reportable 11/24/21 05:23 Dohle Bodies Not Reportable 11/24/21 05:23 Pelger-Huet Anomaly Not Reportable 11/24/21 05:23 Estrada Rods Not Reportable 11/24/21 05:23 Platelet Estimate Consistent w auto 11/24/21 05:23 Clumped Platelets Not Reportable 11/24/21 05:23 Plt Clumps, EDTA Not Reportable 11/24/21 05:23 Large Platelets Rare 11/24/21 05:23 Giant Platelets Not Reportable 11/24/21 05:23 Platelet Satelliting Not Reportable 11/24/21 05:23 Plt Morphology Comment Not Reportable 11/24/21 05:23 RBC Morphology Not Reportable 11/24/21 05:23 Dimorphic RBCs Not Reportable 11/24/21 05:23 Polychromasia Not Reportable 11/24/21 05:23 Hypochromasia Not Reportable 11/24/21 05:23 Poikilocytosis Few 11/24/21 05:23 Anisocytosis 1+ 11/24/21 05:23 Microcytosis Not Reportable 11/24/21 05:23 Macrocytosis 1+ 11/24/21 05:23 Spherocytes Not Reportable 11/24/21 05:23 Pappenheimer Bodies Not Reportable 11/24/21 05:23 Sickle Cells Not Reportable 11/24/21 05:23 Target Cells Not Reportable 11/24/21 05:23 Tear Drop Cells Not Reportable 11/24/21 05:23 Ovalocytes Rare 11/24/21 05:23 Helmet Cells Not Reportable 11/24/21 05:23 [place] Bodies Not Reportable 11/24/21 05:23 [place] Rings Not Reportable 11/24/21 05:23 [place] Cells Rare 11/24/21 05:23 Bite Cells Not Reportable 11/24/21 05:23 Crenated Cell Not Reportable 11/24/21 05:23 Elliptocytes Not Reportable 11/24/21 05:23 Acanthocytes (Spur) Rare 11/24/21 05:23 Rouleaux Not Reportable 11/24/21 05:23 Hemoglobin C Crystals Not Reportable 11/24/21 05:23 Schistocytes Not Reportable 11/24/21 05:23 Malaria parasites Not Reportable 11/24/21 05:23 Hany Bodies Not Reportable 11/24/21 05:23 Hem Pathologist Commnt No 11/24/21 05:23 PT 12.9 Sec. (12.2-14.9) 11/23/21 04:27 INR 0.88 (0.87-1.13) 11/23/21 04:27 Sodium 137 mmol/L (137-145) 11/24/21 05:23 Potassium 3.5 mmol/L (3.6-5.0) L 11/24/21 05:23 Chloride 104.4 mmol/L (98-107) 11/24/21 05:23 Carbon Dioxide 24 mmol/L (22-30) 11/24/21 05:23 Anion Gap 12 mmol/L 11/24/21 05:23 BUN 12 mg/dL (7-17) 11/24/21 05:23 Creatinine 1.0 mg/dL (0.6-1.2) 11/24/21 05:23 Estimated GFR > 60 ml/min 11/24/21 05:23 BUN/Creatinine Ratio 12 % 11/24/21 05:23 Glucose 170 mg/dL (65-100) H 11/24/21 05:23 POC Glucose 131 mg/dL (70-105) H 11/26/21 07:55 Hemoglobin A1c 7.4 % (4-6) H 11/25/21 04:49 Lactic Acid 1.90 mmol/L (0.7-2.0) 11/20/21 00:32 Calcium 7.9 mg/dL (8.4-10.2) L 11/24/21 05:23 Total Bilirubin 0.20 mg/dL (0.1-1.2) 11/19/21 21:44 AST 12 units/L (5-40) 11/19/21 21:44 ALT 8 units/L (7-56) 11/19/21 21:44 Alkaline Phosphatase 54 units/L (35-129) 11/19/21 21:44 Total Protein 7.4 g/dL (6.3-8.2) 11/19/21 21:44 Albumin 3.4 g/dL (3.9-5) L 11/19/21 21:44 Albumin/Globulin Ratio 0.9 % 11/19/21 21:44 25-OH Vitamin D Total 8 ng/mL (30-100) L 11/22/21 11:00 25-Hydroxy Vitamin D2 <4 ng/mL 11/22/21 11:00 25-Hydroxy Vitamin D3 8 ng/mL 11/22/21 11:00 Urine Color Yellow (Yellow) 11/19/21 Unknown Urine Turbidity Clear (Clear) 11/19/21 Unknown Urine pH 6.0 (5.0-7.0) 11/19/21 Unknown Ur Specific [place] 1.020 (1.003-1.030) 11/19/21 Unknown Urine Protein 30 mg/dl mg/dL (Negative) 11/19/21 Unknown Urine Glucose (UA) 1000 mg/dL (Negative) 11/19/21 Unknown Urine Ketones Negative mg/dL (Negative) 11/19/21 Unknown Urine Blood Negative (Negative) 11/19/21 Unknown Urine Nitrite Negative (Negative) 11/19/21 Unknown Ur Reducing Substances Not Reportable 11/19/21 Unknown Urine Bilirubin Negative (Negative) 11/19/21 Unknown Urine Ictotest Not Reportable 11/19/21 Unknown Urine Urobilinogen 0.0 mg/dL (<2.0) 11/19/21 Unknown Ur Leukocyte Esterase Negative (Negative) 11/19/21 Unknown Urine WBC (Auto) 7.0 /HPF (0.0-6.0) H 11/19/21 Unknown Urine RBC (Auto) 2.0 /HPF (0.0-6.0) 11/19/21 Unknown U Epithel Cells (Auto) 8.0 /HPF (0-13.0) 11/19/21 Unknown Urine Bacteria (Auto) 3+ /HPF (Negative) 11/19/21 Unknown Urine Mucus Few /HPF 11/19/21 Unknown Nasal Screen MRSA (PCR) Negative (Negative) 11/21/21 Unknown Vancomycin Trough 12.0 ug/mL (5.0-20.0) 11/23/21 00:20 [place]/IV: Voiding Method External Female Catheter Active Medications - Current Medications Current Medications: Generic Name Dose Route Start Last Admin Trade Name Freq PRN Reason Stop Dose Admin Acetaminophen 650 mg 11/20/21 00:45 11/20/21 18:47 Acetaminophen 325 Mg Tab PO 650 mg Q4H PRN Administration Pain MILD(1-3)/Fever >100.5/BOLAND Amlodipine Besylate 10 mg 11/22/21 10:48 11/25/21 18:08 Amlodipine 10 Mg Tab PO Not Given DAILY MIMI Carvedilol 6.25 mg 11/21/21 22:00 11/25/21 22:44 Carvedilol 6.25 Mg Tab PO 6.25 mg BID MIMI Administration Cilostazol 100 mg 11/23/21 15:00 11/25/21 22:44 Cilostazol 100 Mg Tab PO 100 mg BID MIMI Administration Dextrose 0 ml 11/20/21 00:45 Dextrose 50% In Water (25gm) 50 Ml Syringe IV Q30MIN PRN Hypoglycemia Protocol Heparin Sodium (Porcine) 5,000 unit 11/20/21 06:00 11/26/21 06:29 Heparin 5,000 Unit/1 Ml Vial SUB-Q 5,000 unit Q8HR MIMI Administration Hydralazine HCl 50 mg 11/22/21 10:48 11/25/21 22:57 Hydralazine 25 Mg Tab PO 50 mg TID MIMI Administration Hydromorphone HCl 0.25 mg 11/25/21 17:14 11/25/21 16:40 Hydromorphone 0.5 Mg/0.5 Ml Inj IV 0.25 mg Q10MIN PRN Administration Pain, Moderate (4-6) Hydromorphone HCl 0.5 mg 11/25/21 17:14 Hydromorphone 0.5 Mg/0.5 Ml Inj IV Q10MIN PRN Pain , Severe (7-10) Sodium Chloride 1,000 mls @ 75 mls/hr 11/20/21 00:45 11/24/21 22:28 Nacl 0.9% 1000 Ml IV 125 mls/hr DIRECT MIMI Administration Vancomycin HCl 1 gm in 250 mls @ 250 mls/hr 11/21/21 00:00 11/26/21 01:48 Vancomycin/Ns 1 Gm/250 Ml IV 250 mls/hr Q24H MIMI Administration Ceftriaxone Sodium 1 gm in 50 mls @ 100 mls/hr 11/20/21 12:00 11/25/21 09:35 Rocephin/Ns 1 Gm/50 Ml IV 100 mls/hr Q24HR MIMI Administration Protocol Lactated Ringer's 1,000 mls @ 42 mls/hr 11/25/21 13:30 11/25/21 14:00 Lactated Ringers IV 11/26/21 13:29 42 mls/hr DIRECT MIMI Administration Insulin Human Lispro 0 unit 11/20/21 18:00 11/26/21 01:48 Insulin Lispro 100 Unit/Ml SUB-Q 2 unit ACHS MIMI Administration Protocol Magnesium Hydroxide 30 ml 11/20/21 00:45 11/24/21 14:32 Magnesium Hydroxide (Mom) Oral Liqd Udc PO 30 ml Q4H PRN Administration Constipation Morphine Sulfate 2 mg 11/20/21 00:45 11/25/21 22:57 Morphine 2 Mg/1 Ml Inj IV 2 mg Q4H PRN Administration Pain, Moderate (4-6) Morphine Sulfate 4 mg 11/20/21 00:45 11/26/21 06:18 Morphine 4 Mg/1 Ml Inj IV 4 mg Q4H PRN Administration Pain , Severe (7-10) Ondansetron HCl 4 mg 11/20/21 00:45 11/24/21 16:02 Ondansetron 4 Mg/2 Ml Inj IV 4 mg Q8H PRN Administration Nausea And Vomiting Sodium Chloride 10 ml 11/20/21 10:00 11/25/21 23:00 Sodium Chloride 0.9% 10 Ml Flush Syringe IV 10 ml BID MIMI Administration Sodium Chloride 10 ml 11/20/21 00:45 Sodium Chloride 0.9% 10 Ml Flush Syringe IV PRN PRN LINE FLUSH Nutrition/Malnutrition Assess - Dietary Evaluation Nutrition/Malnutrition Findings: Nutrition Notes Start: 11/20/21 14:22 Freq: Status: Active Protocol: Document 11/24/21 14:35 LIBBY (Rec: 11/24/21 15:10 LIBBY [id number]) Nutrition Notes Initial or Follow up Brief Note Current Diagnosis Acute Kidney Injury,Diabetes, Sepsis,Hypertension Other Pertinent Diagnosis R-Great Toe Gangrene/ Osteomyelitis, PVD, Bacteremia , Hx L-BKA. Current Diet Cardiac/Consistent Carbohydrates Diet + D Suppl ( from B 11/24). 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 No body weight change reported in 3 days. Weight Status Appropriate Subjective/Other Information RD consult for routine F/U on dietary advancement. Pt's PO intake of meals has been Fair (50%), according to ADL notes. Pt is on Room Air, O2 saturation @ 98%, according to Physical Assessment History notes. 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 Percent of energy/protein needs met: Prescribed Cardiac/Consistent Carbohydrates Diet provides for energy/protein needs (1, 977 Kcal/86 g) during LOS; additionally, Dietary Supplements will compensate for possible poor or insufficient PO intake of meals and support wound healing processes with 660 Kcal and 30 g of protein. #2 Nutrition Diagnosis Inadequate protein-energy intake Etiology Possible sepsis/bacteremia. As Evidenced by Signs and Symptoms Pt's PO intake of meals has been Fair (50%), according to ADL notes. #1 Nutrition Diagnosis Increased nutrient needs ( specify in comment below) Comments: Protein to support wound healing processes. Diagnosis Progress(for reassessment Continues documentation) Is patient on ventilator? No Is Patient Ambulatory and/or Out of Bed No REE-([place]. Jeor-confined to bed) 1458.324 Kcal/Kg value to use for calculation 28 Approximate Energy Requirements Using 1786 kcal/Kg Calculation Used for Recommendations Kcal/kg Additional Notes Protein: 1.25-1.5 g/Kg ABW; 80 -96 g/day. Fluids: 1 ml/Kcal, or as per MD. Nutrition Intervention Change Diet Order: Resume Cardiac/Consistent Carbohydrates Diet. Add Supplement/Snack (indicate name/kcal Resume Glucerna; TID. /protein ) Provides kCal: 660 Provides Protein (gm) 30 Goal #1 Compensate, through dietary supplementation, for possible poor or insufficient PO intake of meals during LOS. Goal #2 Support, through dietary supplementation, wound healing processes during LOS. Goal #3 Adjust the dietary intervention to better serve Pt's needs and clinical conditions during LOS. Follow-Up By: 12/01/21 Additional Comments Continue monitoring food tolerance, %PO intake of meals , and BM.
[2021-11-26] MEDS: CILOSTAZOL 100 MG TAB PO SCH ×2 (10:09→22:32)
[2021-11-26] MEDS: hydrALAZINE 25 MG TAB PO SCH ×3 (10:10→22:32)
[2021-11-26] MEDS: carvediloL 6.25 MG TAB PO SCH ×2 (10:10→22:31)
[2021-11-26] MEDS: cefTRIAXone/NS 1 GM/50 ML 1 GM/50 ML BAG IV SCH ×2 (10:10→16:24)
[2021-11-26] MEDS: oxyCODONE /ACETAMINOPHEN 5-325MG TAB PO PRN ×2 (11:40→17:44)
--- NOTE | 2021-11-26 11:50 | Progress Note ---
Assessment and Plan Patient is postop day #1 status post amputation of the right first toe. He states that the pain is improved. She notes that her left arm is swollen from the IVs. The right arm use is a little problematic as she has had a right-sided lumpectomy and sentinel lymph node biopsy. Continue IV antibiotics as tolerated try to manage pain with p.o. pain medication. Subjective Date of service: 11/26/21 Narrative: Patient is postop day #1 status post amputation of the right first toe. He states that the pain is improved. She notes that her left arm is swollen from the IVs. The right arm use is a little problematic as she has had a right-sided lumpectomy and sentinel lymph node biopsy. Continue IV antibiotics as tolerated try to manage pain with p.o. pain medication. Objective Vital Signs - 12hr 11/26/21 11/26/21 11/26/21 06:12 08:30 09:49 Temperature 98.5 F 97.5 F L Pulse Rate 74 80 Respiratory 18 16 Rate Blood Pressure 119/51 122/50 O2 Sat by Pulse 95 98 96 Oximetry - Labs 11/24/21 05:23 11/24/21 05:23 Calcium panel 11/22/21 Range/Units 11:00 25-OH Vitamin D Total 8 L (30-100) ng/mL
--- NOTE | 2021-11-26 12:23 | Progress Note ---
Assessment and Plan Cultures: 11/19/2021 blood culture: CoNS in 1 of 4 bottles 11/19/2021 urine culture: Mixed joe A/P: 66-year-old female with diabetes, hypertension, breast cancer, multiple myeloma, prior left BKA admitted to the hospital due to hypoglycemia. She was also noted to have a gangrenous appearing right toe: #Right great toe gangrene and acute osteomyelitis: Etiology diabetes and peripheral vascular disease. Underwent diagnostic angio by vascular, patient has two-vessel runoff to the right foot with a dominant dorsalis pedis artery which feeds the first digit ulceration. No revascularization plan for vascular as of now. #CoNS bacteremia: CoNS in 1 of 4 bottles, likely contaminant #Peripheral vascular disease: Prior left BKA. Vascular following. Underwent diagnostic angio by vascular, patient has two-vessel runoff to the right foot with a dominant dorsalis pedis artery which feeds the first digit ulceration. No revascularization plan for vascular as of now. #Leukopenia: Probably related to history of multiple myeloma, breast cancer. Patient states both are in remission, but oncologist is in [place]. Last chemo must have been around a year ago, does not remember the exact details. #Diabetes mellitus #Penicillin allergy, tolerating ceftriaxone without issues #DORCAS: Improved. Recs: -Discussed with Dr. Alarcon, patient lost her IV access so we will do p.o. levofloxacin, doxycycline for 7 more days -wound care and glycemic control Analia Salcedo MD, FACP, NED [facility] O: [phone] F: [phone] C: [phone] Subjective Date of service: 11/26/21 Principal diagnosis: Toe gangrene Interval history: Doing well. Got her right great toe amputation done on 11/25/2021. Patient lost her IV access. Objective - Exam Narrative Exam: Physical Exam: Constitutional: Alert, cooperative. No acute distress Head, Ears, Nose: Normocephalic, atraumatic. External ears, nose normal Eyes: Conjunctivae/corneas clear. No icterus. No ptosis. Neck: Supple, no meningeal signs Cardiovascular: S1, S2 + Respiratory: Good air entry, clear to auscultation bilaterally GI: Soft, non-tender; bowel sounds normal. No peritoneal signs Musculoskeletal: Right foot dressing +. Left BKA. Skin: No rash or abscess Hem/Lymphatic: No palpable cervical or supraclavicular nodes. No lymphangitis Psych: Mood ok. Affect normal Neurological: Awake, alert, oriented. No gross abnormality - Constitutional Vitals: Vital Signs Temp Pulse Resp BP Pulse Ox 98.1 F 69 20 120/54 99 11/26/21 12:14 11/26/21 12:14 11/26/21 12:14 11/26/21 12:14 11/26/21 12:14 Temperature -Last 24 Hours Temperature 98.1 F Temperature 97.5 F Temperature 98.5 F Temperature 98.2 F Temperature 98.3 F Temperature 97.6 F Temperature 99.1 F Temperature 99.1 F - Labs CBC & Chem 7: 11/24/21 05:23 11/24/21 05:23 Labs: Abnormal lab results 11/22/21 11/25/21 11/25/21 Range/Units 11:00 14:54 16:13 POC Glucose 128 H 125 H (70-105) mg/dL 25-OH Vitamin D Total 8 L (30-100) ng/mL 11/25/21 11/26/21 11/26/21 Range/Units 21:39 07:55 12:13 POC Glucose 179 H 131 H 253 H (70-105) mg/dL 25-OH Vitamin D Total (30-100) ng/mL
[2021-11-26] MEDS: amLODIPine 10 MG TAB PO SCH (12:43)
[2021-11-26] MEDS: DOXYCYCLINE 100 MG CAP PO SCH ×2 (14:33→22:31)
[2021-11-26] MEDS: levoFLOXacin 500 MG TAB PO SCH (14:33)
[2021-11-26] MEDS: ACETAMINOPHEN 325 MG TAB PO PRN (14:35)
--- NOTE | 2021-11-26 15:41 | Event Note ---
Date: 11/26/21 Patient lost IV access. PICC nurse unable to place PIV in left arm due to swelling from presumed infiltration from previous IV. Patient with hx of right breast lumpectomy with SLDx. Ok to use right arm for IV access at this time. Discussed with patient in detail. She also spoke with her oncologist who agreed she may have IV access in right arm. Spoke with PICC RN who will place PIV. D/W Dr. Alarcon.
[2021-11-27] MEDS: oxyCODONE /ACETAMINOPHEN 5-325MG TAB PO PRN ×2 (00:29→10:07)
[2021-11-27] MEDS: HEPARIN 5,000 UNIT/1 ML VIAL SUB-Q SCH ×2 (05:46→13:47)
--- NOTE | 2021-11-27 07:48 | Discharge Summary ---
Providers - Providers Date of Admission: 11/20/21 00:45 Date of discharge: 11/27/21 Attending physician: ELIZABETH DICKINSON 11/19/21 23:01 Consult to Physician [CONS] Routine Comment: Dr. Fuentes spoke with Dr. Morgan @ [id number] Consulting Provider: EVERT MORGAN Physician Instructions: Reason For Exam: hyperkalemia 11/19/21 23:40 Consult to Physician [CONS] Routine Comment: Dr. Fuentes spoke with Dr. Cooley @ [phone] Consulting Provider: KRYSTEN COOLEY Physician Instructions: Reason For Exam: osteo/gangrene toe 11/20/21 00:48 Consult to Dietitian/Nutrition [CONS] Routine Physician Instructions: Reason For Exam: Reason for Consult: Diet education 11/20/21 05:50 Consult to Physician [CONS] Routine Comment: Consulting Provider: NABIL BRAUN Physician Instructions: Reason For Exam: Right great toe gangrene versus osteomyelitis 11/20/21 13:55 Consult to Physician [CONS] Routine Comment: Consulting Provider: ANISHA MAGDALENO Physician Instructions: Reason For Exam: rt foot osteomylitis 11/20/21 15:36 Consult to Dietitian/Nutrition [CONS] Routine Physician Instructions: Reason For Exam: Reason for Consult: Poor oral intake 11/20/21 15:49 Consult to Wound/ET Nurse [CONS] Routine Reason For Exam: wound eval 11/23/21 16:47 Consult to Physician [CONS] Routine Comment: Consulting Provider: MARYCARMEN HERNANDEZ Physician Instructions: Reason For Exam: right foot osteomylitis 11/25/21 09:26 Physical Therapy Evaluation and Treat [CONS] Routine Comment: hx L BKA Reason For Exam: Deconditioning. R great toe amp today 11/25/21 09:27 Consult to Case Management [CONS] Routine Services Needed at Discharge: Physical Therapy Notified:: n/a Primary care physician: [facility] Hospitalization Condition: Fair Disposition: 06 HOME HEALTH CARE SERVICE Exam - Constitutional Vitals: Temp Pulse Resp BP Pulse Ox 98.0 F 68 18 125/45 98 11/27/21 05:32 11/27/21 05:32 11/27/21 05:32 11/27/21 05:32 11/27/21 05:32 Plan Follow up with: PRIMARY CAREMD [Primary Care Provider] - 7 Days HALIE BRAVO MD [Staff Physician] - 10 Days ANISHA CHING MD [Staff Physician] - 14 Days Prescriptions: amLODIPine 10 mg PO DAILY #30 tablet hydrALAZINE [Apresoline TAB] 50 mg PO TID #90 tablet carvediloL [Coreg] 6.25 mg PO BID #60 tablet levoFLOXacin [Levaquin TAB] 500 mg PO Q24HR #6 tablet oxyCODONE /ACETAMINOPHEN [Percocet 5/325 mg] 1 tab PO Q4H PRN #20 tablet PRN Reason: Pain, Moderate (4-6) cilostazoL [Pletal] 100 mg PO BID #60 tablet DOXYCYCLINE Hyclate [Vibramycin CAP] 100 mg PO BID #13 tab Other Discharge Orders: Glucometer (Amb) Location: None Selected Glucometer supplies[Amb] Location: None Selected
[2021-11-27] MEDS ORDERED: glipiZIDE XL 5 MG TAB PO SCH (08:00)
[2021-11-27] MEDS: INSULIN LISPRO 100 UNIT/ML SUB-Q SCH ×2 (08:31→12:54)
[2021-11-27] MEDS: DOXYCYCLINE 100 MG CAP PO SCH (09:59)
[2021-11-27] MEDS: levoFLOXacin 500 MG TAB PO SCH (09:59)
[2021-11-27] MEDS: CILOSTAZOL 100 MG TAB PO SCH (09:59)
[2021-11-27] MEDS: carvediloL 6.25 MG TAB PO SCH (10:01)
[2021-11-27] MEDS: amLODIPine 10 MG TAB PO SCH (10:02)
[2021-11-27] MEDS: hydrALAZINE 25 MG TAB PO SCH ×2 (10:02→15:06)
[2021-11-27 10:03] VITALS: BP 159/63
--- NOTE | 2021-11-27 10:42 | Progress Note ---
Assessment and Plan Cultures: 11/19/2021 blood culture: CoNS in 1 of 4 bottles 11/19/2021 urine culture: Mixed joe A/P: 66-year-old female with diabetes, hypertension, breast cancer, multiple myeloma, prior left BKA admitted to the hospital due to hypoglycemia. She was also noted to have a gangrenous appearing right toe: #Right great toe gangrene and acute osteomyelitis: Etiology diabetes and peripheral vascular disease. Underwent diagnostic angio by vascular, patient has two-vessel runoff to the right foot with a dominant dorsalis pedis artery which feeds the first digit ulceration. No revascularization plan for vascular as of now. #CoNS bacteremia: CoNS in 1 of 4 bottles, likely contaminant. #Peripheral vascular disease: Prior left BKA. Vascular following. Underwent diagnostic angio by vascular, patient has two-vessel runoff to the right foot with a dominant dorsalis pedis artery which feeds the first digit ulceration. No revascularization plan for vascular as of now. #Leukopenia: Probably related to history of multiple myeloma, breast cancer. Patient states both are in remission, but oncologist is in [place]. Last chemo must have been around a year ago, does not remember the exact details. #Diabetes mellitus #Penicillin allergy, tolerating ceftriaxone without issues #DORCAS: Improved. Recs: -continue PO levofloxacin, doxycycline for 6 more days -wound care and glycemic control Analia Salcedo MD, FACP, NED [facility] O: [phone] F: [phone] C: [phone] Subjective Date of service: 11/27/21 Principal diagnosis: Toe gangrene Interval history: No fever. Reports some nausea. Otherwise tolerating her oral antibiotics. Objective - Exam Narrative Exam: Physical Exam: Constitutional: Alert, cooperative. No acute distress Head, Ears, Nose: Normocephalic, atraumatic. External ears, nose normal Eyes: Conjunctivae/corneas clear. No icterus. No ptosis. Neck: Supple, no meningeal signs Cardiovascular: S1, S2 + Respiratory: Good air entry, clear to auscultation bilaterally GI: Soft, non-tender; bowel sounds normal. No peritoneal signs Musculoskeletal: Right foot great toe amputation. Left BKA. Skin: No rash or abscess Hem/Lymphatic: No palpable cervical or supraclavicular nodes. No lymphangitis Psych: Mood ok. Affect normal Neurological: Awake, alert, oriented. No gross abnormality - Constitutional Vitals: Vital Signs Temp Pulse Resp BP Pulse Ox 98.0 F 71 18 159/63 98 11/27/21 05:32 11/27/21 10:02 11/27/21 05:32 11/27/21 10:02 11/27/21 05:32 Temperature -Last 24 Hours Temperature 98.0 F Temperature 98.4 F Temperature 97.7 F Temperature 98.1 F - Labs CBC & Chem 7: 11/24/21 05:23 11/24/21 05:23 Labs: Abnormal lab results 11/26/21 11/26/21 11/26/21 Range/Units 12:13 17:29 21:54 POC Glucose 253 H 176 H 178 H (70-105) mg/dL 11/27/21 Range/Units 08:01 POC Glucose 120 H (70-105) mg/dL
--- NOTE | 2021-11-27 12:02 | Progress Note ---
Assessment and Plan Patient is postop day #1 status post amputation of the right first toe. She states that the pain is improved. She notes that her left arm is swollen from the IVs. The right arm use is a little problematic as she has had a right-sided lumpectomy and sentinel lymph node biopsy. Continue IV antibiotics as tolerated try to manage pain with p.o. pain medication. Status post amputation of right first toe. Patient okay for discharge. Follow- up with me in 1 week. Subjective Date of service: 11/27/21 Patient Reports: Positive: no new complaints, feels better Narrative: Status post amputation of right first toe. Patient okay for discharge. Follow- up with me in 1 week. Objective Vital Signs - 12hr 11/27/21 11/27/21 11/27/21 05:32 10:01 10:02 Temperature 98.0 F Pulse Rate 68 71 71 Respiratory 18 Rate Blood Pressure 159/63 159/63 Blood Pressure 125/45 [Left] O2 Sat by Pulse 98 Oximetry - Labs 11/24/21 05:23 11/24/21 05:23
== END 2021-11-27 15:05 | disposition home health service (06) | DRG 853 ==
LOC: ED 20:05 → 3A 11-20 00:45
PROVIDERS: ADMIT Internal Medicine Geriatric Medicine; ATTEND Internal Medicine
PROC: B41D1ZZ Fluoroscopy of Aorta and Bilateral Lower Extremity Arteries using Low Osmolar Contrast (ICD-10-PCS; 2021-11-23)
PROC: 0Y6P0Z3 Detachment at Right 1st Toe, Low, Open Approach (ICD-10-PCS; principal; 2021-11-25)
DX: A41.89 Other specified sepsis (principal); N17.0 Acute kidney failure with tubular necrosis; E11.52 Type 2 diabetes mellitus with diabetic peripheral angiopathy with gangrene; I96 Gangrene, not elsewhere classified; M86.171 Other acute osteomyelitis, right ankle and foot; E87.5 Hyperkalemia; E11.649 Type 2 diabetes mellitus with hypoglycemia without coma; Z85.3 Personal history of malignant neoplasm of breast; E11.69 Type 2 diabetes mellitus with other specified complication; E11.621 Type 2 diabetes mellitus with foot ulcer; L97.519 Non-pressure chronic ulcer of other part of right foot with unspecified severity; Z89.512 Acquired absence of left leg below knee; E11.22 Type 2 diabetes mellitus with diabetic chronic kidney disease; N18.9 Chronic kidney disease, unspecified; E83.52 Hypercalcemia; I12.9 Hypertensive chronic kidney disease with stage 1 through stage 4 chronic kidney disease, or unspecified chronic kidney disease; F17.200 Nicotine dependence, unspecified, uncomplicated; Z88.0 Allergy status to penicillin; Z88.8 Allergy status to other drugs, medicaments and biological substances
CPT/HCPCS: 36247; 36415; 71045; 73721; 75625; 75716; 76770; 76937; 80048; 80053; 80202; 81001; 82140; 82306; 82330; 82962; 83036; 85007; 85025; 85610; 87040; 87086; 87116; 87641; 88305; 88311; 93925; 94644; 99406; G0378; J3490; J7517; Q9967; C1769; C1887; J0360; J0610; J0696; J1170; J1644; J1815; J2250; J2270; J2405; J2704; J3010; J3370; J7030; J7040; J7050; J7120